=== PATIENT | male | born 1985 | race Caucasian/White ===

== ENCOUNTER 2024-01-06 09:17 | Outpatient (OUT) | payer OTHER, SELFPAY ==
[2024-01-06 09:31] LABS: Basophils Percent Auto 0.1 % (0.2-2.0); Eosinophils Absolute Auto 0.1 10^3/uL (0.0-0.7); Eosinophils Percent Auto 1.1 % (0.9-7.0); Hematocrit 42.6 % (42.0-54.0); Hemoglobin 14.4 g/dL (14.0-18.0); Immature Granulocytes Abs Auto 0.07 10^3/uL (0.00-0.03); Lymphocytes Absolute Auto 2.2 10^3/uL (1.2-3.8); Lymphocytes Percent Auto 31.5 % (20.5-60.0); Mean Corpuscular HGB Conc 33.8 g/dL (29.9-35.2); Mean Corpuscular Hemoglobin 27.7 pg (25.9-34.0); Mean Corpuscular Volume 82.1 fL (80.0-94.0); Mean Platelet Volume 10.6 fL (9.5-13.5); Monocytes Absolute Auto 0.7 10^3/uL (0.3-0.8); Monocytes Percent Auto 9.4 % (1.7-12.0); Neutrophils Percent Auto 56.9 % (43.0-75.0); Platelet Count 221 10^3/uL (150-450); Red Blood Count 5.19 10^6/uL (4.70-6.10); Red Cell Distribution Width 13.6 % (11.0-15.0)
[2024-01-06 09:51] LABS: Estimated Average Glucose 174 mg/dL; Glycohemoglobin A1C 7.7 % (4.5-6.2)
[2024-01-06 10:17] LABS: Alanine Aminotransferase 51 U/L (16-63); Alkaline Phosphatase 68 U/L (46-116); Anion Gap 10.3; Aspartate Amino Transferase 24 U/L (15-37); Bilirubin Total 0.7 mg/dL (0.2-1.0); Calcium 9.1 mg/dL (8.5-10.1); Carbon Dioxide 30.4 mmol/L (21.0-32.0); Chloride 101 mmol/L (98-107); Cholesterol 194 mg/dL (<=200); Estimated GFR (African America >60 (>=60); Estimated GFR (Non-African Ame >60 (>=60); Globulin 3.9 g/dL; Glucose 183 mg/dL (74-106); HDL Cholesterol 49 mg/dL (40-60); LDL Cholesterol Calculated 122.8 mg/dL; Potassium 3.7 mmol/L (3.5-5.1); Sodium 138 mmol/L (136-145); Thyroid Stimulating Hormone 1.709 uIU/mL (0.358-3.740); Total Protein 7.9 g/dL (6.4-8.2); Triglycerides 111 mg/dL (<=150); VLDL CHOLESTEROL 22.2 mg/dL
== END 2024-01-06 09:18 | disposition home or self-care (01) ==
LOC: LAB 09:17
PROVIDERS: PCP Family Medicine; Visit Provider Family Medicine
DX: Z00.00 Encounter for general adult medical examination without abnormal findings (principal); E11.65 Type 2 diabetes mellitus with hyperglycemia
CPT/HCPCS: 36415; 80053; 80061; 82043; 83036; 84443; 85025

== ENCOUNTER 2024-12-10 00:05 | Emergency (ER) | payer OTHER, SELFPAY ==
--- OUTSIDE RECORDS SUMMARY | 2024-12-10 00:10 | XMS_ITS | CCD ---
Author Organization [facility] Care Team Providers Care Mechanical Energy Engineer Name Role Phone Caryn Omer Unavailable REINIER, DR GEORGIE Rivas Admitting Unavailable HILLS, DR GEORGIE Rivas Attending Unavailable HILLS, DR GEORGIE Rivas Primary Care Unavailable HILLS, DR GEORGIE Rivas Consulting Unavailable HILLS, DR GEORGIE Rivas Admitting Unavailable HILLS, DR GEORGIE Rivas Attending Unavailable HILLS, DR GEORGIE Rivas Consulting Unavailable HILLS, DR GEORGIE Rivas Primary Care Unavailable HILLS, DR GEORGIE Rivas Admitting Unavailable HILLS, DR GEORGIE Rivas Attending Unavailable HILLS, DR GEORGIE Rivas Primary Care Unavailable REINIER, DR GEORGIE Rivas Consulting Unavailable GEORGIE HILLS Primary Care Physician [phone] NORBERT OWEN Attending UnavailNORBERT Whatley Attending Koffi sprague Allergies Allergy Classification Reported Allergen(s) Allergy Type Date of Onset Reaction(s) Facility (1 source) No Known Medication Allergies; Translations: [No Known Medication Allergies] Propensity to adverse reactions (disorder) [facility] Repository Medications Current Medications Medication Drug Class(es) Dates Sig (Normalized) Sig (Original) acetaminophen 325 mg / HYDROcodone bitartrate 5 mg oral tablet (4 sources) Opioid Agonist Start: 07-13-2022 [place] 325 mg-5 mg oral tablet 1 tab(s), Oral, q4hr, 12 tab(s), Refill(s) 0, take one tab q4hr prn after procedure., [id number], 189, cm, 07/13/22 10:13:00 EST, Height/Length Dosing, 132, kg, 07/13/22 10:13:00 EST, Weight Dosing Start Date: 07/13/22 Status: Ordered cephalexin 500 mg oral capsule (4 sources) Cephalosporin Antibacterial Start: 07-13-2022 take 1 capsule by mouth twice daily Keflex 500 mg Cap 500 mg = 1 cap(s), Oral, BID, start one day prior to the procedure., # 10 cap(s), Refills(s) 0, Pharmacy: [facility]/pharmacy #[id number], 189, cm, 07/13/22 10:13:00 EST, Height/Length Dosing, 132, kg, 07/13/22 10:13:00 EST, Weight Dosing Start Date: 07/13/22 Status: Ordered diazePAM 10 mg oral tablet (4 sources) Benzodiazepine Start: 07-13-2022 Valium 10 mg Tab 10 mg = 1 tab(s), Oral, Once, take one hour prior to procedure., # 1 tab(s), Refills(s) 0, Pharmacy: [facility]/pharmacy #[id number], 189, cm, 07/13/22 10:13:00 EST, Height/Length Dosing, 132, kg, 07/13/22 10:13:00 EST, Weight Dosing Start Date: 07/13/22 Status: Ordered metFORMIN hydrochloride 500 mg oral tablet (6 sources) Biguanide Start: 01-02-2024 take 1 tablet by mouth once daily Metformin Active 1 TAB PO Daily January 02, 2024 12:00am FreeTextSig: TAKE 1 TABLET BY MOUTH EVERY DAY; Note: Source Status: Start; Refills: 2; Qty: 90 Tablet; Provider: Reinier Jacques ( ) Start: 07-13-2022 metformin 500 mg oral tablet 500 mg = 1 tab(s), Refills(s) 0 Start Date: 07/13/22 Status: Ordered naproxen 500 mg oral tablet (1 source) Nonsteroidal Anti-inflammatory Drug Start: 09-05-2023 End: 10-03-2023 take 1 tablet by mouth twice daily Naprosyn 500 mg Tab 500 mg = 1 tab(s), Oral, BID, X 4 week(s), # 56 tab(s), Refills(s) 0, Pharmacy: [facility]/pharmacy #[id number], 189, cm, 09/05/23 15:31:00 EST, Height/Length Dosing, 133, kg, 09/05/23 15:31:00 EST, Weight Dosing Start Date: 09/05/23 Stop Date: 10/03/23 Status: Ordered sulfamethoxazole 400 mg / trimethoprim 80 mg oral tablet (1 source) Dihydrofolate Reductase Inhibitor Antibacterial, Sulfonamide Antimicrobial Start: 09-05-2023 End: 10-03-2023 Bactrim 400 mg-80 mg Tab 1 tab(s), Oral, BID for 4 week(s), 56 tab(s), Refill(s) 0, [id number], 189, cm, 09/05/23 15:31:00 EST, Height/Length Dosing, 133, kg, 09/05/23 15:31:00 EST, Weight Dosing Start Date: 09/05/23 Stop Date: 10/03/23 Status: Ordered Problems Active Problems Problem Classification Problem Date Documented Date Episodic/Chronic Contraceptive and procreative management (7 sources) Sterilization requested; Translations: [Encounter for sterilization] Onset: 07-13-2022 Episodic Diabetes mellitus with complications (7 sources) Hyperglycemia due to type 1 diabetes mellitus; Translations: [Hyperglycemia due to type 2 diabetes mellitus] 07-13-2022 Chronic Genitourinary symptoms and ill-defined conditions (9 sources) Dysuria; Translations: [Dysuria] Onset: 09-28-2021 Resolved: 09-28-2021 Episodic Inflammatory conditions of male genital organs (1 source) Prostatitis; Translations: [Inflammatory disease of prostate, unspecified] Onset: 09-05-2023 Episodic Other aftercare (3 sources) Surgical follow-up 09-14-2022 Episodic Other male genital disorders (1 source) Disorder of penis; Translations: [Other specified disorders of penis] Onset: 09-05-2023 Chronic Other male genital disorders (1 source) Irritation of penis 09-05-2023 Chronic Unclassified (2 sources) CONTACT W/AND (SUSP) EXPOS COVID-19; Translations: [CONTACT W/AND (SUSP) EXPOS COVID-19] Onset: 09-07-2021 Unclassified (5 sources) Asymptomatic microscopic hematuria 07-13-2022 Viral infection (1 source) COVID-19; Translations: [COVID-19] Onset: 09-07-2021 Past or Other Problems Problem Classification Problem Date Documented Da te Episodic/Chronic Diabetes mellitus without complication (1 source) Hyperglycemia, unspecified; Translations: [HYPERGLYCEMIA UNSPECIFIED] Onset: 10-20-2021 Episodic Other circulatory disease (1 source) Elevated blood-pressure reading, without diagnosis of hypertension; Translations: [ELEVATED BP READING W/O DX HTN] Onset: 10-20-2021 Episodic Unclassified (1 source) CONTACT W/AND (SUSP) EXPOS COVID-19; Translations: [CONTACT W/AND (SUSP) EXPOS COVID-19] Onset: 09-01-2021 Results Test Name Value Interpretation Reference Range Facility Urology Office/Clinic Noteon 11-22-2024 Urology Office/Clinic Note Urology Office/Clinic Note Chief Complaint Worsening LUTS HPI Staff Pt is here today for urinary urgency and frequency. Pt states that his symptoms started this past Monday. Previous dx: frequency and penile irritation Possible prostatitis treated at last OV with Bactrim and Naprosyn BID for 4 weeks. Pt states that his symptoms feel the same as the last time he was treated in our office. Denies dysuria, blood or pain of any kind. Denies any urinary leakage. Review of Systems PHQ Score Initial Depression Screen Score: 0 SCORE No fever, chills, malaise, myalgia. No dysuria, +pain w/ ejaculation, no pain w/ BM. No blood in urine, ejaculate, or stool. +change in urgency/frequency, +straining, +stream changes. No discharge, odor, or change in color of urine. +perineal pain/pressure, no scrotal pain, no suprapubic pain. Physical Exam Vitals & Measurements T: 37 ???C(Temporal Artery) HR: 82(Apical) RR: 18 BP: 146/99 HT: 189 cm HT: 74 in WT: 131.9 kg WT: 290.789 lb BMI: 36.93 General: nontoxic, NAD Assessment/Plan 1. Prostatitis (N41.9: Inflammatory disease of prostate, unspecified) Treated for same sx a little over a year ago. Responded well to 4 wks NSAID+Bactrim. Sx completely resolved. No new sexual partners. No high risk sexual behavior. Discussed that it sounds like he has chronic prostatitis. May be getting recurrent infection due to BPH/chronic obstruction. Discussed risks/benefits of starting alpha talon to hopefully decrease recurrence rates of acute prostatitis. Pt amenable. He was advised about the different possible causes of bacterial and non-bacterial prostatitis. He needs to complete the course of prescribed antibiotics. He understands that the symptoms improve if he decreases his exercise and activity level. Anti-inflammatory medicines can also be helpful, as well as frequent ejaculations. Hot baths are also helpful in easing the discomfort. -2 wks NSAIDs w food -4 wks Bactrim. -Start Flomax, maintenance. Risks/benefits/asa e effects of each medication discussed. F/u 1 yr. Follow-up With When Contact Information LYNNETTE OWEN PA-C, URL In 1 year [address] [place] [address] Additional Instructions: Patient Education Prostatitis Problem List/Past Medical History Ongoing Asymptomatic microscopic hematuria Encounter for postvasectomy sperm count Encounter for vasectomy Hyperglycemia due to type 1 diabetes mellitus Penile irritation Historical No qualifying data Procedure/Surgical History Vasectomy (09/01/2022). Medications Bactrim D.S. 800 mg-160 mg Tab, 1 tab(s), Oral, BID Flomax 0.4 mg Cap, 0.4 mg= 1 cap(s), Oral, Daily, 3 refills metformin 1000 mg Tab, 1000 mg= 1 tab(s) Naprosyn 500 mg Tab, 500 mg= 1 tab(s), Oral, BID Allergies No Known Medication Allergies Social History Alcohol - Low Risk, 07/13/2022 Substance Abuse Never., 11/21/2024 Tobacco Never (less than 100 in lifetime) Tobacco Use:. Never Smokeless Tobacco Use:. Household tobacco concerns: No., 11/21/2024 Family History Cancer: Father. Diabetes mellitus: Brother. Immunizations Vaccine Date Status SARS-CoV-2 (COVID-19) mRNA BNT-162b2 vax 11/21/2020 Recorded SARS-CoV-2 (COVID-19) mRNA BNT-162b2 vax 10/31/2020 Recorded influenza virus vaccine, inactivated 06/19/2019 Recorded influenza virus vaccine, H1N1, live 06/25/2009 Recorded measles/mumps/rube lla virus vaccine 03/30/2000 Recorded hepatitis B pediatric vaccine 03/30/2000 Recorded measles/mumps/rube lla virus vaccine 01/12/1993 Recorded Hib, unspecified formulation 01/12/1993 Recorded Normal [facility] Comment on above: Result Comment: Elec tronically Signed By: LYNNETTE OWEN PA-C\.br\Date and Time Signed: 11/22/24 12:33 EDT Ambulatory Visit Summaryon 0 11-21-2024 Ambulatory Visit Summary Ambulatory Visit Summary ESTEPHANIA GALE :1985 Visit Date:11/21/2024 Ambulatory Visit Instructions Your Diagnosis Prostatitis Your Care Team Attending Physician - LYNNETTE OWEN PA-C Primary Care Physician - GEORGIE HILLS MD This Is Your Medications List naproxen (Naprosyn 500 mg Tab) sulfamethoxazole-t rimethoprim (Bactrim D.S. 800 mg-160 mg Tab) tamsulosin (Flomax 0.4 mg Cap) Contact prescribing physician if questions or concerns metformin (metformin 1000 mg Tab) Procedures Performed Vasectomy (09/01/2022). Discharge Vitals Temperature (Temporal Artery) 37 ???C Heart Rate (Apical) 82 Respiratory Rate 18 Blood Pressure 146/99 Height 74 in Height 189 cm Weight 290.789 lb Weight 131.9 kg BMI 36.93 What to do next Scheduled Follow-Up Appointments Monday2025 8:20 AM EDT With: LYNNETTE OWEN PA-C Where: [facility] [address] [place] [address]- Medications What How Much When Instructions New naproxen (Naprosyn 500 mg Tab) 1 Tablets By Mouth 2 times a day Duration: 14 Days with food Pickup at [facility]/pharmacy #[id number] New sulfamethoxazole-t rimethoprim (Bactrim D.S. 800 mg-160 mg Tab) 1 Tablets By Mouth 2 times a day Duration: 28 Days Pickup at [facility]/pharmacy #[id number] New tamsulosin (Flomax 0.4 mg Cap) 1 Capsules By Mouth Every day Duration: 90 Days Refills: 3 Pickup at [facility]/pharmacy #[id number] Unchanged metformin (metformin 1000 mg Tab) 1 Tablets Contact prescribing physician if questions or concerns Pharmacy Information [facility]/pharmacy #[id number]: [address], [place] [id number] [phone] Allergies No Known Medication Allergies Problems Ongoing - Any problem that you are currently receiving treatment for. Asymptomatic microscopic hematuria Encounter for postvasectomy sperm count Encounter for vasectomy Hyperglycemia due to type 1 diabetes mellitus Penile irritation Patient Survey You may receive a survey via text or e-mail asking about your office visit. Please share your experience with us by completing your survey. We appreciate your feedback and thank you for choosing us for your care. Normal [facility] CBC AUTO DIFFon 05-14-2022 BASO # 0.0 103/ul Normal 0.0-0.1 [facility] Comment on above: Performed By: #### C BC #### [facility] [address] [address] [address] Solitario Ochoa Basophils/100 WBC (Bld) 0.3 % Normal 0.2-2.0 [facility] Comment on above: Performed By: #### C BC #### [facility] [address] [place] [address] Dr. Solitario Ochoa EO # 0.1 103/ul Normal 0.0-0.7 [facility] Comment on above: Performed By: #### C BC #### [facility] [address] [place] [address] Dr. Solitario Ochoa Eosinophils/100 WBC (Bld) 1.9 % Normal 0.9-7.0 [facility] Comment on above: Performed By: #### C BC #### [facility] [address] [place] [address] Dr. Solitario Ochoa Erythrocyte distribution width (RBC) [Ratio] 13.6 % Normal 11.0-15.0 [facility] Comment on above: Performed By: #### C BC #### [facility] [address] [place] [address] Dr. Solitario Ochoa Hematocrit (Bld) [Volume fraction] 43.5 % Normal 42.0-54.0 [facility] Comment on above: Performed By: #### C BC #### [facility] [address] [place] [address] Dr. Solitario Ochoa Hemoglobin (Bld) [Mass/Vol] 14.7 g/dL Normal 14.0-18.0 [facility] Comment on above: Performed By: #### C BC #### [facility] [address] [place] [address] Dr. Solitario Ochoa IG # 0.04 10e3/ul Critically high 0.00-0.03 [facility] Comment on above: Performed By: #### C BC #### [facility] [address] [place] [address] Dr. Solitario Ochoa IG % 0.6 % Critically high 0.0-0.5 [facility] Comment on above: Performed By: #### C BC #### [facility] [address] [place] [address] Dr. Solitario Ochoa LYMPH # 1.5 103/ul Normal 1.2-3.8 [facility] Comment on above: Performed By: #### C BC #### [facility] [address] [place] [address] Dr. Solitario Ochoa Lymphocytes/100 WBC (Bld) 21.8 % Normal 20.5-60.0 [facility] Comment on above: Performed By: #### C BC #### [facility] [address] [place] [address] Dr. Solitario Ochoa MANUAL DIFF REQ NO Normal [facility] Comment on above: Performed By: #### C BC #### [facility] [address] [place] [address] Dr. Solitario Ochoa MCH (RBC) [Entitic mass] 27.9 pg Normal 25.9-34.0 [facility] Comment on above: Performed By: #### C BC #### [facility] [address] [place] [address] Dr. Solitario Ochoa MCHC (RBC) [Mass/Vol] 33.8 g/dL Normal 29.9-35.2 [facility] Comment on above: Performed By: #### C BC #### [facility] [address] [place] [address] Dr. Solitario Ochoa MCV (RBC) [Entitic vol] 82.7 fL Normal 80.0-94.0 [facility] Comment on above: Performed By: #### C BC #### [facility] [address] [place] [address] Dr. Solitario Ochoa MONO # 0.9 103/ul Critically high 0.3-0.8 [facility] Comment on above: Performed By: #### C BC #### [facility] [address] [place] [address] Dr. Solitario Ochoa Monocytes/100 WBC (Bld) 13.3 % Critically high 1.7-12.0 [facility] Comment on above: Performed By: #### C BC #### [facility] [address] [place] [address] Dr. Solitario Ochoa NEUT # 4.3 103/ul Normal 1.4-6.5 [facility] Comment on above: Performed By: #### C BC #### [facility] [address] [place] [address] Dr. Solitario Ochoa Neutrophils/100 WBC (Bld) 62.1 % Normal 43.0-75.0 [facility] Comment on above: Performed By: #### C BC #### [facility] [address] [place] [address] Dr. Solitario Ochoa Platelet mean volume (Bld) [Entitic vol] 10.4 fL Normal 9.5-13.5 [facility] Comment on above: Performed By: #### C BC #### [facility] [address] [place] [address] Dr. Solitario Ochoa PLT 192 103/ul Normal 150-450 [facility] Comment on above: Performed By: #### C BC #### [facility] [address] [place] [address] Dr. Solitario Ochoa RBC 5.26 106/ul Normal 4.70-6.10 [facility] Comment on above: Performed By: #### C BC #### [facility] [address] [place] [address] Dr. Solitario Ochoa WBC 7.0 103/ul Normal 4.0-11.0 [facility] Comment on above: Performed By: #### C BC #### [facility] [address] [place] [address] Dr. Solitario Ochoa GLYCOHEMOGLOBIN A1Con 2021 ADA RECOMMENDATION SEE BELOW Normal [facility] Comment on above: Result Comment: ADA RECOMMENDED LIMIT 4.0 - 6.0 ADA THERAPEUTIC TARGET < 7.0 ACTION SUGGESTED > 7.0 Performed By: #### A 1C #### [facility] [address] [place] [address] Dr. Solitario Ochoa Glucose [Mass/Vol] 160 mg/dL Normal [facility] Comment on above: Performed By: #### A 1C #### [facility] [address] [address] [address] Solitario Ochoa HbA1c (Bld) [Mass fraction] 7.2 % Critically high 4.5-6.2 [facility] Comment on above: Performed By: #### A 1C #### [facility] [address] [place] [address] Dr. Solitario Ochoa LIPID PROFILEon 05-14-2022 CHOL-HDL RATIO NORM SEE BELOW Normal [facility] Comment on above: Result Comment: 3.3 - 4.4 LOW RISK 4.4 - 7.1 AVERAGE RISK 7.1 - 11.0 MODERATE RISK >11.0 HIGH RISK Performed By: #### C MP, LIPID #### [facility] [address] [place] [address] Dr. Solitario Ochoa Cholesterol [Mass/Vol] 208 mg/dL Critically high <=200 [facility] Comment on above: Performed By: #### C MP, LIPID #### [facility] [address] [place] [address] Dr. Solitario Ochoa Cholesterol in HDL [Mass/Vol] 52 mg/dL Normal 40-60 [facility] Comment on above: Performed By: #### C MP, LIPID #### [facility] [address] [address] [address] Solitario Ochoa Cholesterol in LDL [Mass/Vol] 131.8 mg/dL Normal [facility] Comment on above: Performed By: #### C MP, LIPID #### [facility] [address] [place] [address] Dr. Solitario Ochoa Cholesterol.total/Ch olesterol in HDL [Mass ratio] 4.0 {ratio} Normal [facility] Comment on above: Performed By: #### C MP, LIPID #### [facility] [address] [place] [address] Dr. Solitario Ochoa HDL NORMAL > or = 60 mg/dl - LOW CARDIOVASCULAR RISK <40 mg/dl - HIGH CARDIOVASCULAR RISK Normal [facility] Comment on above: Performed By: #### C MP, LIPID #### [facility] [address] [place] [address] Dr. Solitario Ochoa LDL CALC NORMAL SEE BELOW Normal [facility] Comment on above: Result Comment: <100 mg/dl OPTIMAL 100 - 129 mg/dl NEAR OR ABOVE OPTIMAL 130 - 159 mg/dl BORDERLINE HIGH 160 - 189 mg/dl HIGH >190 mg/dl VERY HIGH Performed By: #### C MP, LIPID #### [facility] [address] [place] [address] Dr. Solitario Ochoa Triglyceride [Mass/Vol] 121 mg/dL Normal <=150 [facility] Comment on above: Performed By: #### C MP, LIPID #### [facility] [address] [place] [address] Dr. Solitario Ochoa VLDL CALC 24.2 mg/dL Normal [facility] Comment on above: Performed By: #### C MP, LIPID #### [facility] [address] [place] [address] Dr. Solitario Ochoa PROF 14(COMP METB)on 022 Albumin [Mass/Vol] 4.0 g/dL Normal 3.4-5.0 [facility] Comment on above: Performed By: #### C MP, LIPID #### [facility] [address] [place] [address] Dr. Solitario Ochoa Albumin/Globulin [Mass ratio] 1.1 {ratio} Normal [facility] Comment on above: Performed By: #### C MP, LIPID #### [facility] [address] [place] [address] Dr. Solitario Ochoa ALP [Catalytic activity/Vol] 53 U/L Normal 46-116 [facility] Comment on above: Performed By: #### C MP, LIPID #### [facility] [address] [place] [address] Dr. Solitario Ochoa ALT [Catalytic activity/Vol] 49 U/L Normal 16-63 [facility] Comment on above: Performed By: #### C MP, LIPID #### [facility] [address] [address] [address] Solitario Ochoa Anion gap [Moles/Vol] 13.1 mmol/L Normal [facility] Comment on above: Performed By: #### C MP, LIPID #### [facility] [address] [address] [address] Solitario Ochoa AST [Catalytic activity/Vol] 28 U/L Normal 15-37 [facility] Comment on above: Performed By: #### C MP, LIPID #### [facility] [address] [place] [address] Dr. Solitario Ochoa Bilirubin [Mass/Vol] 0.9 mg/dL Normal 0.2-1.0 [facility] Comment on above: Performed By: #### C MP, LIPID #### [facility] [address] [place] [address] Dr. Solitario Ochoa Calcium [Mass/Vol] 8.7 mg/dL Normal 8.5-10.1 [facility] Comment on above: Performed By: #### C MP, LIPID #### [facility] [address] [place] [address] Dr. Solitario Ochoa Chloride [Moles/Vol] 102 mmol/L Normal 98-107 [facility] Comment on above: Performed By: #### C MP, LIPID #### [facility] [address] [place] [address] Dr. Solitario Ochoa CO2 [Moles/Vol] 27.1 mmol/L Normal 21.0-32.0 [facility] Comment on above: Performed By: #### C MP, LIPID #### [facility] [address] [place] [address] Dr. Solitario Ochoa Creatinine [Mass/Vol] 0.85 mg/dL Normal 0.70-1.30 [facility] Comment on above: Performed By: #### C MP, LIPID #### [facility] [address] [address] [address] Solitario Ochoa EGFR-AF EQUATORIAL GUINEAN >60 Normal >=60 [facility] Comment on above: Performed By: #### C MP, LIPID #### [facility] [address] [address] [address] Solitario Ochoa EGFR-NON AF EQUATORIAL GUINEAN >60 Normal >=60 [facility] Comment on above: Performed By: #### C MP, LIPID #### [facility] [address] [address] [address] Solitario Ochoa Globulin (S) [Mass/Vol] 3.7 g/dL Normal [facility] Comment on above: Performed By: #### C MP, LIPID #### [facility] [address] [place] [address] Dr. Solitario Ochoa Glucose [Mass/Vol] 177 mg/dL Critically high 74-[address] [facility] Comment on above: Performed By: #### C MP, LIPID #### [facility] [address] [place] [address] Dr. Solitario Ochoa Potassium [Moles/Vol] 4.2 mmol/L Normal 3.5-5.1 [facility] Comment on above: Performed By: #### C MP, LIPID #### [facility] [facility] [address] [place] [address] Dr. Solitario Ochoa Protein [Mass/Vol] 7.7 g/dL Normal 6.4-8.2 [facility] Comment on above: Performed By: #### C MP, LIPID #### [facility] [address] [place] [address] Dr. Solitario Ochoa Sodium [Moles/Vol] 138 mmol/L Normal 136-145 [facility] Comment on above: Performed By: #### C MP, LIPID #### [facility] [address] [place] [address] Dr. Solitario Ochoa Urea nitrogen [Mass/Vol] 11.0 mg/dL Normal 7.0-18.0 [facility] Comment on above: Performed By: #### C MP, LIPID #### [facility] [address] [place] [address] Dr. Solitario Ochoa Urea nitrogen/Creatinine [Mass ratio] 12.9 mg/mg Normal [facility] Comment on above: Performed By: #### C MP, LIPID #### [facility] [address] [place] [address] Dr. Solitario Ochoa CBC AUTO DIFFon 10-15-2021 BASO # 0.0 103/ul Normal 0.0-0.1 [facility] Comment on above: Performed By: #### C BC #### [facility] [address] [place] [address] Dr. Solitario Ochoa Basophils/100 WBC (Bld) 0.3 % Normal 0.2-2.0 [facility] Comment on above: Performed By: #### C BC #### [facility] [address] [place] [address] Dr. Solitario Ochoa EO # 0.1 103/ul Normal 0.0-0.7 [facility] Comment on above: Performed By: #### C BC #### [facility] [address] [place] [address] Dr. Solitario Ochoa Eosinophils/100 WBC (Bld) 1.3 % Normal 0.9-7.0 [facility] Comment on above: Performed By: #### C BC #### [facility] [address] [place] [address] Dr. Solitario Ochoa Erythrocyte distribution width (RBC) [Ratio] 13.9 % Normal 11.0-15.0 [facility] Comment on above: Performed By: #### C BC #### [facility] [address] [place] [address] Dr. Solitario Ochoa Hematocrit (Bld) [Volume fraction] 44.4 % Normal 42.0-54.0 [facility] Comment on above: Performed By: #### C BC #### [facility] [address] [place] [address] Dr. Solitario Ochoa Hemoglobin (Bld) [Mass/Vol] 15.2 g/dL Normal 14.0-18.0 [facility] Comment on above: Performed By: #### C BC #### [facility] [address] [place] [address] Dr. Solitario Ochoa IG # 0.04 10e3/ul Critically high 0.00-0.03 [facility] Comment on above: Performed By: #### C BC #### [facility] [address] [place] [address] Dr. Solitario Ochoa IG % 0.5 % Normal 0.0-0.5 [facility] Comment on above: Performed By: #### C BC #### [facility] [address] [place] [address] Dr. Solitario Ochoa LYMPH # 2.5 103/ul Normal 1.2-3.8 [facility] Comment on above: Performed By: #### C BC #### [facility] [address] [place] [address] Dr. Solitario Ochoa Lymphocytes/100 WBC (Bld) 31.1 % Normal 20.5-60.0 [facility] Comment on above: Performed By: #### C BC #### [facility] [address] [place] [address] Dr. Solitario Ochoa MANUAL DIFF REQ NO Normal [facility] Comment on above: Performed By: #### C BC #### [facility] [address] [place] [address] Dr. Solitario Ochoa MCH (RBC) [Entitic mass] 28.1 pg Normal 25.9-34.0 [facility] Comment on above: Performed By: #### C BC #### [facility] [address] [place] [address] Dr. Solitario Ochoa MCHC (RBC) [Mass/Vol] 34.2 g/dL Normal 29.9-35.2 [facility] Comment on above: Performed By: #### C BC #### [facility] [address] [place] [address] Dr. Solitario Ochoa MCV (RBC) [Entitic vol] 82.1 fL Normal 80.0-94.0 [facility] Comment on above: Performed By: #### C BC #### [facility] [address] [place] [address] Dr. Solitario Ochoa MONO # 0.8 103/ul Normal 0.3-0.8 [facility] Comment on above: Performed By: #### C BC #### [facility] [address] [place] [address] Dr. Solitario Ochoa Monocytes/100 WBC (Bld) 9.7 % Normal 1.7-12.0 [facility] Comment on above: Performed By: #### C BC #### [facility] [address] [place] [address] Dr. Solitario Ochoa NEUT # 4.5 103/ul Normal 1.4-6.5 [facility] Comment on above: Performed By: #### C BC #### [facility] [address] [place] [address] Dr. Solitario Ochoa Neutrophils/100 WBC (Bld) 57.1 % Normal 43.0-75.0 [facility] Comment on above: Performed By: #### C BC #### [facility] [address] [place] [address] Dr. Solitario Ochoa Platelet mean volume (Bld) [Entitic vol] 10.3 fL Normal 9.5-13.5 [facility] Comment on above: Performed By: #### C BC #### [facility] [address] [place] [address] Dr. Solitario Ochoa PLT 234 103/ul Normal 150-450 [facility] Comment on above: Performed By: #### C BC #### [facility] [address] [place] [address] Dr. Solitario Ochoa RBC 5.41 106/ul Normal 4.70-6.10 [facility] Comment on above: Performed By: #### C BC #### [facility] [address] [place] [address] Dr. Solitario Ochoa WBC 7.9 103/ul Normal 4.0-11.0 [facility] Comment on above: Performed By: #### C BC #### [facility] [address] [place] [address] Dr. Solitario Ochoa CULTURE URINEon 10-15-2021 CULTURE URINE Culture Observations: LIGHT GROWTH OF MIXED SKIN GLORIA. NO POTENTIAL PATHOGENS SEEN. Normal [facility] Comment on above: Performed By: #### U RCX #### [facility] [address] [address] [address] Solitario Ochoa GLYCOHEMOGLOBIN A1Con 2021 ADA RECOMMENDATION ADA THERAPEUTIC TARGET 6.0 - 7.0 ACTION SUGGESTED > 7.0 Normal [facility] Comment on above: Performed By: #### A 1C #### [facility] [address] [place] [address] Dr. Solitario Ochoa Glucose [Mass/Vol] 154 mg/dL Normal [facility] Comment on above: Performed By: #### A 1C #### [facility] [address] [place] [address] Dr. Solitario Ochoa HbA1c (Bld) [Mass fraction] 7.0 % Critically high <=6.0 [facility] Comment on above: Performed By: #### A 1C #### [facility] [address] [place] [address] Dr. Solitario Ochoa PROF CHEM 8 (BAS METB)on Anion gap [Moles/Vol] 11.6 mmol/L Normal [facility] Comment on above: Performed By: #### B MP #### [facility] [address] [place] [address] Dr. Solitario Ochoa Calcium [Mass/Vol] 9.4 mg/dL Normal 8.4-10.2 [facility] Comment on above: Performed By: #### B MP #### [facility] [address] [place] [address] Dr. Solitario Ochoa Chloride [Moles/Vol] 100 mmol/L Normal 98-107 [facility] Comment on above: Performed By: #### B MP #### [facility] [address] [place] [address] Dr. Solitario Ochoa CO2 [Moles/Vol] 29.4 mmol/L Normal 22.0-30.0 [facility] Comment on above: Performed By: #### B MP #### [facility] [address] [place] [address] Dr. Solitario Ochoa Creatinine [Mass/Vol] 0.72 mg/dL Normal 0.66-1.25 [facility] Comment on above: Performed By: #### B MP #### [facility] [address] [address] [address] Solitario Ochoa EGFR-AF EQUATORIAL GUINEAN >60 Normal >=60 [facility] Comment on above: Performed By: #### B MP #### [facility] [address] [address] [address] Solitario Ochoa EGFR-NON AF EQUATORIAL GUINEAN >60 Normal >=60 [facility] Comment on above: Performed By: #### B MP #### [facility] [address] [address] [address] Solitario Ochoa Glucose [Mass/Vol] 140 mg/dL Critically high 74-[address] [facility] Comment on above: Performed By: #### B MP #### [facility] [address] [address] [address] Solitario Ochoa Potassium [Moles/Vol] 4.0 mmol/L Normal 3.4-5.0 [facility] Comment on above: Performed By: #### B MP #### [facility] [address] [address] [address] Solitario Ochoa Sodium [Moles/Vol] 137 mmol/L Normal 137-145 [facility] Comment on above: Performed By: #### B MP #### [facility] [address] [address] [address] Solitario Ochoa Urea nitrogen [Mass/Vol] 15.0 mg/dL Normal 9.0-20.0 [facility] Comment on above: Performed By: #### B MP #### [facility] [address] [address] [address] Solitario Ochoa Urea nitrogen/Creatinine [Mass ratio] 20.8 mg/mg Normal [facility] Comment on above: Performed By: #### B MP #### [facility] [address] [address] [address] Solitario Ochoa UA RANDOM W/MICROSCOPICon BACTERIA NONE SEEN Normal NONE SEEN [facility] Comment on above: Performed By: #### U AMIC #### [facility] [address] [address] [address] Solitario Ochoa Bilirubin Ql (U) Negative Normal NEGATIVE [facility] Comment on above: Performed By: #### U AMIC #### [facility] [address] [address] [address] Solitairo Ochoa CAST NONE SEEN Normal NONE SEEN [facility] Comment on above: Performed By: #### U AMIC #### [facility] [address] [address] [address] Solitario Ochoa Clarity (U) CLEAR Normal CLEAR [facility] Comment on above: Performed By: #### U AMIC #### [facility] [address] [address] [address] Solitario Ochoa Color (U) LT. YELLOW Normal YELLOW [facility] Comment on above: Performed By: #### U AMIC #### [facility] [address] [address] [address] Solitario Ochoa Crystals LM Nom (Urine sed) NONE SEEN Normal NONE SEEN [facility] Comment on above: Performed By: #### U AMIC #### [facility] [address] [address] [address] Solitario Ochoa Epithelial cells LM Ql (Urine sed) RARE Normal NONE SEEN /RARE [facility] Comment on above: Performed By: #### U AMIC #### [facility] [address] [address] [address] Solitario Ochoa Glucose Ql (U) Negative Normal NEGATIVE [facility] Comment on above: Performed By: #### U AMIC #### [facility] [address] [address] [address] Solitario Ochoa Hemoglobin Ql (U) TRACE-LYSED Abnormal NEGATIVE [facility] Comment on above: Performed By: #### U AMIC #### [facility] [address] [address] [address] Solitario Ochoa Ketones Ql (U) Negative Normal NEGATIVE [facility] Comment on above: Performed By: #### U AMIC #### [facility] [address] [address] [address] Solitario Ochoa LEUKOCYTES Negative Normal NEGATIVE [facility] Comment on above: Performed By: #### U AMIC #### [facility] [address] [address] [address] Solitario Ochoa MUCOUS NONE SEEN Normal NONE SEEN [facility] Comment on above: Performed By: #### U AMIC #### [facility] [address] [address] [address] Solitario Ochoa Nitrite Ql (U) Negative Normal NEGATIVE [facility] Comment on above: Performed By: #### U AMIC #### [facility] [address] [address] [address] Solitario Ochoa pH (U) 6.0 [pH] Normal 5-9 [facility] Comment on above: Performed By: #### U AMIC #### [facility] [address] [place] [address] Dr. Solitario Ochoa RBC 2-5 Abnormal 0-2 [facility] Comment on above: Performed By: #### U AMIC #### [facility] [address] [place] [address] Dr. Solitario Ochoa SPEC GRAVITY 1.025 Normal 1.005-<=1.025 [facility] Comment on above: Performed By: #### U AMIC #### [facility] [address] [place] [address] Dr. Solitario Ochoa UA PROTEIN Negative Normal NEGATIVE/ TRACE [facility] Comment on above: Performed By: #### U AMIC #### [facility] [address] [place] [address] Dr. Solitario Ochoa Urobilinogen Qn (U) 0.2 {Nelly'U}/dL Normal 0.2 - 1. 0 [facility] Comment on above: Performed By: #### U AMIC #### [facility] [address] [place] [address] Dr. Solitario Ochoa WBC NONE SEEN Normal NONE SEEN [facility] Comment on above: Performed By: #### U AMIC #### [facility] [address] [address] [address] Solitario Ochoa Chlamydia/GC/Trich NAAon Chlamydia Trachomotis, CAMMIE Negative Normal Negative [facility] Comment on above: Order Comment: SOURC E OF SPECIMEN: YELLOW UR APTIMA Performed By: #### C UU #### [address] #### GCCHLAMTRI #### [facility] , Neisseria Gonorrhoeae, CAMMIE Negative Normal Negative [facility] Comment on above: Order Comment: SOURC E OF SPECIMEN: YELLOW UR APTIMA Performed By: #### C UU #### [address] #### GCCHLAMTRI #### [facility] , Trichomonas CAMMIE Negative Normal Negative [facility] Comment on above: Order Comment: SOURC E OF SPECIMEN: YELLOW UR APTIMA Result Comment: Perf ormed at: =G - [facility] [address] [id number] Land [employer] Specialist: Yisel Perez MD, Phone: [phone] PERFORMED BY: [place] [address] PATHOLOGIST ZIG ZAG STITCHER VIDHI BAER M.D. Performed By: #### C UU #### [address] #### GCCHLAMTRI #### [facility] , Urinalysis - AUTOMATEDon Appearance (U) clear [employer] Other Bilirubin Ql (U) Negative [employer] Other Color (U) dark yellow [employer] Other Glucose Ql (U) Negative [employer] Other Hemoglobin Ql (U) trace [employer] Other Ketones Ql (U) trace [employer] Other Leukocyte esterase Test strip Ql (U) Negative [employer] Other Nitrite Ql (U) Negative [employer] Other pH (U) 6.0 [pH] [employer] Other Protein Ql (U) trace [employer] Other Specific gravity (U) [Rel density] >1.030 [employer] Other Urobilinogen (U) [Mass/Vol] 0.2 mg/dL [employer] Other Urinalysis - AUTOMATED [employer] Other Urine Cultureon 09-28-2021 Bacteria identified Cx Nom (U) 20,000 colonies/ml mixed bacterial skin contaminants 2 Days PERFORMED BY: [place] [address] PATHOLOGIST ZIG ZAG STITCHER VIDHI BAER M.D. Normal [facility] Comment on above: Performed By: #### C UU #### [facility] [address] [place] [address] #### GCCHLAMTRI #### [facility] , Covid-19 PCR (CVDTB)on 08-05 SARS-CoV-2 (COVID-19) RNA CAMMIE+probe Ql (Unsp spec) Detected Critically abnormal NOT DETECTED [facility] Comment on above: Result Comment: This test is not yet approved or cleared by the [place] FDA. When there are no FDA-approved or cleared tests available, and other criteria are met, FDA can make tests available under an emergency access mechanism called an Emergency Use Authorization (EUA). The EUA for this test is supported by the [place] of Health and Human Service's (HHS's) declaration that circumstances exist to justify the emergency use of in vitro diagnostics for the detection and/or diagnosis of the virus that causes COVID-19. This EUA will remain in effect (meaning this test can be used) for the duration of the COVID-19 declaration justifying emergency of IVDs, unless it is terminated or revoked by FDA (after which the test may no longer be used). Performed By: #### C [facility] #### [facility] [address] [place] [address] Dr. Solitario Ochoa Vital Signs Date Time Vital Sign Value Performing Clinician Facility 01-04-2024 15:55-0400 Body height 187.96 cm [facility] 01-04-2024 15:55-0400 Body mass index (BMI) [Ratio] 38.2 kg/m2 [facility] 01-04-2024 15:55-0400 Body weight 134.88 kg [facility] 01-04-2024 15:55-0400 Diastolic blood pressure 96 mm[Hg] [facility] 01-04-2024 15:55-0400 Heart rate 89 /min [facility] 01-04-2024 15:55-0400 Systolic blood pressure 154 mm[Hg] [facility] 09-05-2023 15:30-0500 Blood Pressure Location LYNNETTE OWEN [facility] 09-05-2023 15:30-0500 Diastolic blood pressure 89 mm[Hg] LYNNETTE BLUMRY [facility] 09-05-2023 15:30-0500 Heart rate 79 /min LYNNETTE BRAYDEN [facility] 09-05-2023 15:30-0500 Respiratory rate 16 /min LYNNETTE BRAYDEN [facility] 09-05-2023 15:30-0500 Systolic blood pressure 138 mm[Hg] LYNNETTE BRAYDEN [facility] 07-13-2022 09:51-0500 Blood Pressure Location Nicholas MENJIVAR [facility] 07-13-2022 09:51-0500 Diastolic blood pressure 91 mm[Hg] Nicholas [email or web address] [facility] 07-13-2022 09:51-0500 Heart rate 81 /min Nicholas Disrupt6 [facility] 07-13-2022 09:51-0500 Respiratory rate 16 /min Nicholas [email or web address] [facility] 07-13-2022 09:51-0500 Systolic blood pressure 152 mm[Hg] Nicholas Disrupt6 [facility] 09-28-2021 17:20-0500 Body height 187.96 cm Caryn Ginty Other [facility] Other 09-28-2021 17:20-0500 Body mass index (BMI) [Ratio] 38.9 kg/m2 Caryn Ginty Other [facility] Other 09-28-2021 17:20-0500 Body temperature 97.5 [degF] Caryn Ginty Other [facility] Other 09-28-2021 17:20-0500 Body weight 137.44 kg Caryn Ginty Other [facility] Other 09-28-2021 17:20-0500 Diastolic blood pressure 95 mm[Hg] Caryn Ginty Other [facility] Other 09-28-2021 17:20-0500 Respiratory rate 18 /min Caryn Ginty Other [facility] Other 09-28-2021 17:20-0500 SaO2% (BldA) [Mass fraction] 99 % Caryn Cherylloyd Other [facility] Other 09-28-2021 17:20-0500 Systolic blood pressure 156 mm[Hg] Caryn Cherylloyd Other [employer] Other Encounters Encounter Date Encounter Type Care Provider Facility Start: 11-21-2025 ambulatory PA-C LYNNETTE OWEN Facility:[facility] Start: 11-21-2024 End: 11-21-2024 ambulatory PA-C LYNNETTE OWEN Facility:[facility] Start: 01-04-2024 Patient encounter status [facility] Start: 01-04-2024 End: 01-04-2024 ambulatory [facility] Work Phone: Start: 01-04-2024 End: 01-04-2024 Encounter for general adult medical examination without abnormal findings [facility] Start: 01-04-2024 End: 01-04-2024 Patient encounter procedure Pending Sale To [facility] Work Phone: Start: 09-05-2023 End: 09-05-2023 Patient encounter procedure LYNNETTE OWEN [facility] Start: 11-25-2022 End: 11-25-2022 Lab Drop off Nicholas MENJIVAR [facility] Start: 09-14-2022 End: 09-14-2022 Patient encounter procedure [facility]JIVAR [facility] Start: 09-01-2022 End: 09-01-2022 Patient encounter procedure Nicholas MENJIVAR [facility] Start: 07-13-2022 End: 07-13-2022 Patient encounter procedure Nicholas MENJIVAR [facility] Start: 05-20-2022 Encounter for genera l adult medical examination without abnormal findings DR GEORGIE HILLS [facility] Start: 05-14-2022 End: 05-15-[address] GEORGIE HILLS Facility:[facility] Start: 05-14-2022 End: 05-15-2022 Encounter for general adult medical examination without abnormal findings DR GEORGIE HILLS Facility:[facility] Start: 10-15-2021 End: 10-16-[address] GEORGIE HILLS Facility:[facility] Start: 10-01-2021 End: 10-01-2021 ambulatory Caryn Ginty Other [employer] Other Start: 10-01-2021 Telephone encounter Caryn Ginty [facility] [address] Start: 09-28-2021 End: 09-28-2021 ambulatory Caryn Ginty Other [employer] Other Start: 09-28-2021 Office outpatient vi sit 15 minutes Caryn Ginty [facility] Start: 09-01-2021 End: 09-01-[address] GEORGIE HILLS Facility:[facility] Procedures Date Procedure Procedure Detail Performing Clinician Start: 09-01-2022 Vasectomy Nicholas ARAIZA Plan of Treatment Date Care Activity Detail Author Comprehensive metabo lic 2000 panel - Serum or Plasma [facility] enter Microalbumin [Mass/volume] in Urine [facility] Immunizations Immunization Date Immunization Notes Care Provider Fa cility 11-21-2020 SARS-CoV-2 (COVID-19 ) mRNA BNT-162b2 vax Nicholas MENJIVAR [facility] 10-31-2020 SARS-CoV-2 (COVID-19 ) mRNA BNT-850b2 vax Nicholas MENJIVAR [facility] 06-19-2019 influenza virus vaccine, unspecified formulation Nicholas MENJIVAR [facility] 06-25-2009 influenza virus vaccine, H1N1, live Nicholas MENJIVAR [facility] 03-30-2000 hepatitis B vaccine, pediatric or pediatric/adolescent dosage Nicholas MENJIVAR [facility] 03-30-2000 measles, mumps and rubella virus vaccine Nicholas MENJIVAR [facility] 01-12-1993 Hib, unspecified formulation Nicholas MENJIVAR [facility] 01-12-1993 measles, mumps and rubella virus vaccine Nicholas MENJIVAR [facility] Payers Date Payer Category Payer Unknown [id number] 1987 Unknown [id number] 1987 Unknown [id number] 1987 Unknown [id number] 1987 Unknown [id number] 1959 Private Health Insurance [id number] Self-pay Self Pay [id number] Unknown Lexi GARCIA/BS [id number] Social History Date Type Detail Facility Sex Assigned At [facility] Start: 03-06-2016 End: 07-13-2022 Tobacco smoking status Never smoked tobacco (finding) [facility] of [facility] Tobacco smoking status Never [facility] Start: 1985 Sex Assigned At Male F [facility] Functional Status Date Assessment Result Facility 09-05-2023 Functional Status N/A [facility] 09-14-2022 Functional Status N/A [facility] 08-30-2022 Functional Status N/A [facility] 07-13-2022 Functional Status N/A [facility] Clinical Notes 09-28-2021 to 11-22-2024 LaboratoryLaboratory Note Date & Type Note Facility 11-22-2024 Note Patient Education Infectious Disease Prostatitis Prostatitis is swelling or inflammation of the prostate gland, also called the prostate. This gland is about 1.5 inches wide and 1 inch high, and it is involved in making semen. The prostate is located below a man's bladder, in front of the rectum. There are four types of prostatitis: ??? Chronic prostatitis (CP), also called chronic pelvic pain syndrome (CPPS). This is the most common type of prostatitis. It is associated with increased muscle tone in the area between the hip bones (pelvic area), around the prostate. This type is also known as a pelvic floor disorder. ??? Chronic bacterial prostatitis. This type usually results from an acute bacterial infection in the prostate gland that keeps coming back or has not been treated properly. The symptoms are less severe than those caused by acute bacterial prostatitis, which lasts a shorter time. ??? Asymptomatic inflammatory prostatitis. This type does not have symptoms and does not need treatment. This is diagnosed when tests are done for other disorders of the urinary tract or reproductive tract. ??? Acute bacterial prostatitis. This type starts quickly and results from an acute bacterial infection in the prostate gland. It is usually associated with a bladder infection, high fever, and chills. This is the least common type of prostatitis. What are the causes? Bacterial prostatitis is caused by an infection from bacteria. Chronic nonbacterial prostatitis may be caused by: ??? Factors related to the nervous system. This system includes thebrain, spinal cord, and nerves. ??? An autoimmune response. This happens when the body's disease-fighting system attacks healthy tissue in the body by mistake. ??? Psychological factors. These have to do with how the mind works. The causes of the other types of prostatitis are usually not known. What are the signs or symptoms? Symptoms of this condition depend on the type of prostatitis you have. Acute bacterial prostatitis Symptoms may include: ??? Pain or burning during urination. ??? Frequent and sudden urges to urinate. ??? Trouble starting to urinate. ??? Fever. ??? Chills. ??? Pain in your muscles or joints, lower back, or lower abdomen. Other types of prostatitis Symptoms may include: ??? Sudden urges to urinate, or urinating often. ??? Trouble starting to urinate. ??? Weak urine stream. ??? Dribbling after urination. ??? Discharge coming from the penis. ??? Pain in the testicles, the penis, or the tip of the penis. ??? Pain in the area in front of the rectum and below the scrotum (perineum). ??? Pain when ejaculating. How is this diagnosed? This condition may be diagnosed based on: ??? A physical and medical exam. ??? A digital rectal exam. For this, the health care provider may use a finger to feel the prostate. ??? A urine test to check for bacteria. ??? A semen sample or blood tests. ??? Ultrasound. ??? Urodynamic tests to check how your body handles urine. ??? Cystoscopy to look inside your bladder or inside the part of your body that drains urine from the bladder (urethra). How is this treated? Treatment for this condition depends on the type of prostatitis. Treatment may involve: ??? Medicines to relieve pain or inflammation, or to help relax your muscles. ??? Physical therapy. ??? Heat therapy. ??? Biofeedback. These techniques help you control certain body functions. ??? Relaxation exercises. ??? Antibiotic medicine, if your condition is caused by bacteria. ??? Sitz baths. These warm water baths help to relax your pelvic floor muscles, which helps to relieve pressure on the prostate. Follow these instructions at home: Medicines ??? Take ktbm-kax-yxmmuyg and prescription medicines only as told by your health care provider. ??? If you were prescribed an antibiotic medicine, take it as told by your health care provider. Do not stop using the antibiotic even if you start to feel better. Managing pain and swelling ??? Take sitz baths as directed by your health care provider. For a sitz bath, sit in warm water that is deep enough to cover your hips and buttocks. ??? If directed, apply heat to the affected area as often as told by your health care provider. Use the heat source that your health care provider recommends, such as a moist heat pack or a heating pad. ? Place a towel between your skin and the heat source. ? Leave the heat on for 20?30 minutes. ? Remove the heat if your skin turns bright red. This is especially important if you are unable to feel pain, heat, or cold. You may have a greater risk of getting burned. General instructions ??? Do exercises as told by your health care provider, if you were prescribed physical therapy, biofeedback, or relaxation exercises. ??? Keep all follow-up visits as told by your health care provider. This is important. (more content not included)... [facility] 09-05-2023 Hospital Discharg e instructions Patient Education 09/05/2023 16:10:34 Prostatitis Prostatitis Prostatitis is swelling or inflammation of the prostate gland, also called the prostate. This gland is about 1.5 inches wide and 1 inch high, and it is involved in making semen. The prostate is located below a man's bladder, in front of the rectum. There are four types of prostatitis: Chronic prostatitis (CP), also called chronic pelvic pain syndrome (CPPS). This is the most common type of prostatitis. It is associated with increased muscle tone in the area between the hip bones (pelvic area), around the prostate. This type is also known as a pelvic floor disorder. Chronic bacterial prostatitis. This type usually results from an acute bacterial infection in the prostate gland that keeps coming back or has not been treated properly. The symptoms are less severe than those caused by acute bacterial prostatitis, which lasts a shorter time. Asymptomatic inflammatory prostatitis. This type does not have symptoms and does not need treatment. This is diagnosed when tests are done for other disorders of the urinary tract or reproductive tract. Acute bacterial prostatitis. This type starts quickly and results from an acute bacterial infection in the prostate gland. It is usually associated with a bladder infection, high fever, and chills. This is the least common type of prostatitis. What are the causes? Bacterial prostatitis is caused by an infection from bacteria. Chronic nonbacterial prostatitis may be caused by: Factors related to the nervous system. This system includes thebrain, spinal cord, and nerves. An autoimmune response. This happens when the body's disease-fighting system attacks healthy tissue in the body by mistake. Psychological factors. These have to do with how the mind works. The causes of the other types of prostatitis are usually not known. What are the signs or symptoms? Symptoms of this condition depend on the type of prostatitis you have. Acute bacterial prostatitis Symptoms may include: Pain or burning during urination. Frequent and sudden urges to urinate. Trouble starting to urinate. Fever. Chills. Pain in your muscles or joints, lower back, or lower abdomen. Other types of prostatitis Symptoms may include: Sudden urges to urinate, or urinating often. Trouble starting to urinate. Weak urine stream. Dribbling after urination. Discharge coming from the penis. Pain in the testicles, the penis, or the tip of the penis. Pain in the area in front of the rectum and below the scrotum (perineum). Pain when ejaculating. How is this diagnosed? This condition may be diagnosed based on: A physical and medical exam. A digital rectal exam. For this, the health care provider may use a finger to feel the prostate. A urine test to check for bacteria. A semen sample or blood tests. Ultrasound. Urodynamic tests to check how your body handles urine. Cystoscopy to look inside your bladder or inside the part of your body that drains urine from the bladder (urethra). How is this treated? Treatment for this condition depends on the type of prostatitis. Treatment may involve: Medicines to relieve pain or inflammation, or to help relax your muscles. Physical therapy. Heat therapy. Biofeedback. These techniques help you control certain body functions. Relaxation exercises. Antibiotic medicine, if your condition is caused by bacteria. Sitz baths. These warm water baths help to relax your pelvic floor muscles, which helps to relieve pressure on the prostate. Follow these instructions at home: Medicines Take sznt-nos-mqogbnj and prescription medicines only as told by your health care provider. If you were prescribed an antibiotic medicine, take it as told by your health care provider. Do not stop using the antibiotic even if you start to feel better. Managing pain and swelling Take sitz baths as directed by your health care provider. For a sitz bath, sit in warm water that is deep enough to cover your hips and buttocks. If directed, apply heat to the affected area as often as told by your health care provider. Use the heat source that your health care provider recommends, such as a moist heat pack or a heating pad. ?Place a towel between your skin and the heat source. ?Leave the heat on for 20 30 minutes. ?Remove the heat if your skin turns bright red. This is especially important if you are unable to feel pain, heat, or cold. You may have a greater risk of getting burned. General instructions Do exercises as told by your health care provider, if you were prescribed physical therapy, biofeedback, or relaxation exercises. Keep all follow-up visits as told by your health care provider. This is important. Where to find more information National [place] of Diabetes and Digestive and Kidney Diseases: https://www.niddk.nih.gov Contact a health care provider if: Your symptoms get worse. You have a fever. Get help right away if: You have chills. You feel light-headed or feel like you may faint. You cannot urinate. You have blood or blood clots in your urine. Summary Prostatitis is swelling or inflammation of the prostate gland. Treatment for this condition depends on the type of prostatitis. Take mekq-kyv-dzaiwbv and prescription medicines only as told by your health care provider. Get help right away of you have chills, feel light-headed, feel like you may faint, cannot urinate, or have blood or blood clots in your urine. This information is not intended to replace advice given to you by your health care provider. Make sure you discuss any questions you have with your health care provider. Document Revised: 09/25/2020 Document Reviewed: 09/25/2020 Elsevier Patient Education 2022 [employer]. Follow Up Care 09/01/2023 14:24:29 With:LYNNETTE OWEN PA-C, URL Address: [address] [place] [id number] When: only if needed [facility] 11-25-2022 Evaluation + Plan note Diagnostic Tests PendingSemen Analysis Post Vasectomy 11/25/22Sperm Morphology 11/25/22 Future Scheduled TestsSemen Analysis Post Vasectomy 09/14/22 [facility] 09-14-2022 Evaluation + Plan note Future Scheduled TestsSemen Analysis Post Vasectomy 09/14/22 [facility] 09-14-2022 Hospital Discharg e instructions Patient Education 09/14/2022 08:01:01 Contraception Choices Contraception Choices Contraception, also called control, refers to methods or devices that prevent . Hormonal methods Contraceptive implant A contraceptive implant is a thin, plastic tube that contains a hormone. It is inserted into the upper part of the arm. It can remain in place for up to 3 years. Progestin-only injections Progestin-only injections are injections of progestin, a synthetic form of the hormone progesterone. They are given every 3 months by a health care provider. control pills control pills are pills that contain hormones that prevent . They must be taken once a day, preferably at the same time each day. control patch The control patch contains hormones that prevent . It is placed on the skin and must be changed once a week for three weeks and removed on the fourth week. A prescription is needed to use this method of contraception. Vaginal ring A vaginal ring contains hormones that prevent . It is placed in the vagina for three weeks and removed on the fourth week. After that, the process is repeated with a new ring. A prescription is needed to use this method of contraception. Emergency contraceptive Emergency contraceptives prevent after unprotected sex. They come in pill form and can be taken up to 5 days after sex. They work best the sooner they are taken after having sex. Most emergency contraceptives are available without a prescription. This method should not be used as your only form of control. Barrier methods Male condom A male condom is a thin sheath that is worn over the penis during sex. Condoms keep sperm from going inside a woman's body. They can be used with a spermicide to increase their effectiveness. They should be disposed after a single use. Female condom A female condom is a soft, loose-fitting sheath that is put into the vagina before sex. The condom keeps sperm from going inside a woman's body. They should be disposed after a single use. Diaphragm A diaphragm is a soft, dome-shaped barrier. It is inserted into the vagina before sex, along with a spermicide. The diaphragm blocks sperm from entering the uterus, and the spermicide kills sperm. A diaphragm should be left in the vagina for 6 8 hours after sex and removed within 24 hours. A diaphragm is prescribed and fitted by a health care provider. A diaphragm should be replaced every 1 2 years, after giving , after gaining more than 15 lb (6.8 kg), and after pelvic surgery. Cervical cap A cervical cap is a round, soft latex or plastic cup that fits over the cervix. It is inserted into the vagina before sex, along with spermicide. It blocks sperm from entering the uterus. The cap should be left in place for 6 8 hours after sex and removed within 48 hours. A cervical cap must be prescribed and fitted by a health care provider. It should be replaced every 2 years. Sponge A sponge is a soft, circular piece of polyurethane foam with spermicide on it. The sponge helps block sperm from entering the uterus, and the spermicide kills sperm. To use it, you make it wet and then insert it into the vagina. It should be inserted before sex, left in for at least 6 hours after sex, and removed and thrown away within 30 hours. Spermicides Spermicides are chemicals that kill or block sperm from entering the cervix and uterus. They can come as a cream, jelly, suppository, foam, or tablet. A spermicide should be inserted into the vagina with an applicator at least 10 15 minutes before sex to allow time for it to work. The process must be repeated every time you have sex. Spermicides do not require a prescription. Intrauterine contraception Intrauterine device (IUD) An IUD is a T-shaped device that is put in a woman's uterus. There are two types: Hormone IUD.This type contains progestin, a synthetic form of the hormone progesterone. This type can stay in place for 3 5 years. Copper IUD.This type is wrapped in copper wire. It can stay in place for 10 years. Permanent methods of contraception Female tubal ligation In this method, a woman's fallopian tubes are sealed, tied, or blocked during surgery to prevent eggs from traveling to the uterus. Hysteroscopic sterilization In this method, a small, flexible insert is placed into each fallopian tube. The inserts cause scar tissue to form in the fallopian tubes and block them, so sperm cannot reach an egg. The procedure takes about 3 months to be effective. Another form of control must be used during those 3 months. Male sterilization This is a procedure to tie off the tubes that carry sperm (vasectomy). After the procedure, the man can still ejaculate fluid (semen). Natural planning methods Natural family planning In this method, a couple does not have sex on days when the woman could become . Calendar method This means keeping track of the length of each menstrual cycle, identifying the days when can happen, and not having sex on those days. Ovulation method In this method, a couple avoids sex during ovulation. Symptothermal method This method involves not having sex during ovulation. The woman typically checks for ovulation by watching changes in her temperature and in the consistency of cervical mucus. Post-ovulation method In this method, a couple waits to have sex until after ovulation. Summary Contraception, also called control, means methods or devices that prevent . Hormonal methods of contraception include implants, injections, pills, patches, vaginal rings, and emergency contraceptives. Barrier methods of contraception can include male condoms, female condoms, diaphragms, cervical caps, sponges, and spermicides. There are two types of IUDs (intrauterine devices). An IUD can be put in a woman's uterus to prevent for 3 5 years. Permanent sterilization can be done through a procedure for males, females, or both. Natural family planning methods involve not having sex on days when the woman could become . This information is not intended to replace advice given to you by your health care provider. Make sure you discuss any questions you have with your health care provider. Document Released: 08/21/2006 Document Revised: 08/23/2018 Document Reviewed: 09/23/2017 [employer] Patient Education 2020 [employer]. Follow Up Care 07/13/2022 10:35:16 With:TIARA AGUIRRE, Nicholas Malagon, URL Address: [address] [place] [address] [place], [place] [id number]- When: only if needed Comments:renetta [facility] 09-01-2022 Hospital Discharg e instructions Patient Education 09/01/2022 07:38:45 [facility] - Vasectomy Discharge Instructions (Custom) Vasectomy The following instructions must be followed closely: -If you need pain pills, start before pain becomes intense. Antibiotics and pain pills are frequently less upsetting to your stomach if you take them with food such as crackers or bread. -If you have excessive or persistent pain, swelling, bleeding, nausea, vomiting, or any problems, you should first call your surgeon for advice. If you are unable to contact your surgeon, seek help from a hospital emergency room. If you were given drugs to make you drowsy or pain medication follow these instructions: -You should spend the remainder of the day and evening resting. -You should not attempt to walk, including going to the bathroom without assistance. You may be lightheaded from the medication you received. -Eat light today to avoid nausea. You should be able to return to your normal diet 24 to 36 hours after your procedure. -For the next 24 hours, do not consume alcohol, attempt to drive, use power tools, sign important documents or make important decisions. After that only do so if you feel perfectly normal and alert. -Follow carefully any verbal or written instructions your surgeon may give you. Surgeons written instructions with a copy given to patient: -No sex for 1 to 2 weeks. - No unprotected sex, until results of your sperm count have been verified as negative by your doctor, and these results given to you. -You may shower in 2 days. -Take the pain medication and antibiotics as directed. -Apply frozen peas or corn to your scrotum, 15 minutes on and 15 minutes off. -Call the office to schedule follow up appointment 1 to 2 weeks after your procedure. Follow Up Care 07/13/2022 10:57:27 With:Nicholas MENJIVAR Address: [address] [place], [place] [id number] [facility] (1) When:2 to 4 weeks Comments:Call for followup appointment [facility] 07-13-2022 Hospital Discharg e instructions Patient Education 07/13/2022 10:25:58 Vasectomy, Care After Vasectomy, Care After This sheet gives you information about how to care for yourself after your procedure. Your health care provider may also give you more specific instructions. If you have problems or questions, contact your health care provider. What can I expect after the procedure? After your procedure, it is common to have: Mild pain, swelling, redness, or discomfort in your scrotum. Some blood coming from your incisions or puncture sites for one or two days. Blood in your semen. Follow these instructions at home: Medicines Take gnoo-fux-tloyfkw and prescription medicines only as told by your health care provider. Avoid taking NSAIDs such as aspirin and ibuprofen, because these medicines can make bleeding worse. Activity For the first 2 days after surgery, avoid physical activity and exercise that require a lot of energy. Ask your health care provider what activities are safe for you. Do not participate in sports or perform heavy physical labor until your pain has improved, or until your health care provider says it is okay. Do not ejaculate for at least 1 week after the procedure, or as long as directed. You may resume sexual activity 7 10 days after your procedure, or when your health care provider approves. Use a different method of control (contraception) until you have had test results that confirm that there is no sperm in your semen. Scrotal support Use scrotal support, such as a jock strap or underwear with a supportive pouch, as needed for one week after your procedure. If you feel discomfort in your scrotum, you may remove the scrotal support to see if the discomfort is relieved. Sometimes scrotal support can press on the scrotum and cause or worsen discomfort. If your skin gets irritated, you may add some germ-free (sterile), fluffed bandages or a clean washcloth to the scrotal support. General instructions Put ice on the injured area: ?Put ice in a plastic bag. ?Place a towel between your skin and the bag. ?Leave the ice on for 20 minutes, 2 3 times a day. Check your incisions or puncture sites every day for signs of infection. Check for: ?Redness, swelling, or pain. ?Fluid or blood. ?Warmth. ?Pus or a bad smell. Leave stitches (sutures) in place. The sutures will dissolve on their own and do not need to be removed. Keep all follow-up visits as told by your health care provider. This is important because you will need a test to confirm that there is no sperm in your semen. Multiple ejaculations are needed to clear out sperm that were beyond the vasectomy site. You will need one test result showing that there is no sperm in your semen before you can resume unprotected sex. This may take 2 4 months after your procedure. Do not drive for 24 hours if you were given a sedative to help you relax. Contact a health care provider if: You have redness, swelling, or more pain around your incision or puncture site, or in your scrotum area in general. You have bleeding from your incision or puncture site. You have pus or a bad smell coming from your incision or puncture site. You have a fever. Your incision or puncture site opens up. Get help right away if: You develop a rash. You have difficulty breathing. Summary After your procedure it is common to have mild pain, swelling, redness, or discomfort in your scrotum. Avoid physical activity and exercise that requires a lot of energy for the first 2 days after surgery. Put ice on the injured area. Leave the ice on for 20 minutes, 2 3 times a day. Do not drive for 24 hours if you were given a sedative to help you relax. This information is not intended to replace advice given to you by your health care provider. Make sure you discuss any questions you have with your health care provider. Document Released: 03/10/2006 Document Revised: 08/03/2018 Document Reviewed: 11/17/2017 [employer] Patient Education 2020 [employer]. Follow Up Care 03/29/2022 13:05:50 With:TIARA AGUIRRE, Nicholas Malagon, URL Address: [address] [place] [id number] When: Unknown [facility] 09-28-2021 Evaluation note Encounter Date Diagnosis Assessment Notes Sep, Dysuria (ICD-10 - R30.0) Discussed dipstick findings with patient. No signs of UTI present. Patient has had urine cultures completed in the past with no positive results on culture. Patient wishes to procede with urine culture. Advised that we will call him with results in 2-5 days. Discussed that urinary issues may be related to STI. Patient wishes to have STI panel completed today as well. Advised that if urine culture and STI panel come back clean, patient needs to follow up with his PCP to have glucose checked and/or urology referral. Patient verbalizes understanding and is agreeable with treatment plan Opposing Views Other Evaluation + Plan note Future Appointments Appointment Date:08/18/2022 08:15:00 AM Scheduled Provider: Location:[facility] Appointment Type:Urology CALL PAT FT Appointment Date:09/01/2022 08:00:00 AM Scheduled Provider: Location:[facility] Appointment Type:Urology FT Appointment Date:09/14/2022 07:45:00 AM Scheduled Provider:Nicholas MENJIVAR MD Location:[facility] Appointment Type:URO Office Visit [facility] Evaluation + Plan note Future Appointments Appointment Date:09/14/2022 08:00:00 AM Scheduled Provider:Nicholas MENJIVAR MD Location:[facility]ointment [facility] note[facility] InformationNort [employer] Other Evaluation note* Diagnosis Onset Date Resolution Status Type 2 diabetes mellitus with hyperglycemia acute Wellness examination [facility] Work Phone: History general Narrative - Reported* Type Description Date Medical History pre hypertension Surgical History oral surgery Hospitalization History see surgical hx Opposing Views Other Hospital course Narrative No data available for this section [facility] Hospital Discharge instructions No data available for this section [facility] No data available for this section [facility] [place] Summary Purpose Family History No Family History Records Found Relationship Condition Age at Onset Recorded Date/T selina father Malignant neoplasm Unknown Diabetes mellitus Unknown Advance Directives No Advanced Directives Records Found Advance Directive Response Recorded Date/ Time Advance Directives No October 01, 2021 3:31pm Chief Complaint and Reason for Visit Chief Complaint check up Reason for Visit Type 2 diabetes gopi itus with hyperglycemia Wellness examination Additional Source Comments (unrecognized sect ion and content) No Status Records FoundNo Status Records FoundNo Status Records Found INFORMATION SOURCE (unrecogn ized section and content) DATE CREATED AUTHOR 11/22/2021 [facility] DATE CREATED AUTHOR AUTHOR'S ORGANIZ ATION [facility]/28[facility]2022 [facility] DATE CREATED AUTHOR AUTHOR'S ORGANIZ ATION 11/24/2024 [facility] REASON FOR VISIT (unrecogniz ed section and content) POSS UTI, FREQUENCY, URGENCY No Information Patient Care team informatio n (unrecognized section and content) Team Status: Active Member Role Status Dates Georgie Hills MD Primary Care Provider Active Team Status: Inactive Member Role Status Dates Georgie Hills MD Primary Care Provide r, Attending Provider Active Start: January 04, 2024 End: January 04, 2024 Goals (unrecognized section and content) Goals may be documented in a n alternate section FOR RECORDS PERTAINING TO PATIENTS WHO ARE OR HAVE BEEN ENROLLED IN A CHEMICAL DEPENDENCY/SUBSTANCEABUSE PROGRAM, SOME INFORMATION MAY BE OMITTED. This clinical summary was aggregated from multiple sources. Caution should be exercised in using it in the provision of clinical care. This summary normalizes information from multiple sources, and as a consequence, information in this document may materially change the coding, format and clinical context of patient data. In addition, data may be omitted in some cases. CLINICAL DECISIONS SHOULD BE BASED ON THE PRIMARY CLINICAL RECORDS. [employer] provides no warranty or guarantee of the accuracy or completeness of information in this document.
[2024-12-10 00:13] VITALS: BP 163/96; PULSE 88; TEMP 36.9; O2SAT 99; BMI 37.2
--- NOTE | 2024-12-10 00:35 | ED_ITS ---
HPI - Male Genitourinary General Chief complaint: Urogenital-Male Stated complaint: POSS PROSTATITIS COMPLICATION Time Seen by Provider: 12/10/24 00:22 Source: patient Mode of arrival: walk-in Limitations: no limitations History of Present Illness HPI Narrative: diagnosed with prostatitis by Urology 2 weeks ago and prescribed bactrim ds. has taken it for 2 weeks without improvement in his symptoms. Today Urology called in Doxycycline for him. He took one dose of doxycycline. States tonight he was just not feeling well and not able to get comfortable. No fever, nausea or discharge. Decided to come in to get checked out Related Data Home Medications ?Medication ?Instructions ?Recorded ?Confirmed doxycycline hyclate 100 mg capsule mg 12/10/24 metformin 1,000 mg tablet mg 12/10/24 tamsulosin 0.4 mg capsule mg PO 12/10/24 Allergies Allergy/AdvReac Type Severity Reaction Status Date / Time No Known Drug Allergies Allergy Verified 12/10/24 00:22 Review of Systems ROS Status of ROS 10 or more systems reviewed and unremark able except as noted in history and below PFSH PFSH Social History Little interest or pleasure in doing things: not at all Feeling down, depressed, or hopeless: not at all Exam Constitutional Vital Signs, click to edit/add: Last Vital Signs Temp 98.4 F 12/10/24 00:13 Pulse 88 12/10/24 00:13 Resp 18 12/10/24 00:13 BP 163/96 H 12/10/24 00:13 Pulse Ox 99 12/10/24 00:13 Common normals: no apparent distress, average body habitus, oriented x3, no limitations, healthy appearing, alert and well nourished [facility] Common normals: normocephalic and head/scalp atraumatic Eye Common normals: EOMs intact bilaterally and conjunctivae normal Respiratory Common normals: normal respiratory effort, no retractions, no use of accessory muscles and clear to auscultation bilaterally Cardio Common normals: regular rate, regular rhythm, S1 normal heart sound and S2 normal heart sound Extremity Common normals: normal to inspection and full ROM Neuro Common normals: oriented x3, CN's II-XII intact bilaterally, moves all extremities and no focal motor deficits Psych Appearance: grossly normal Course Vital Signs Vital signs: Vital Signs Temperature 98.4 F 12/10/24 00:13 Pulse Rate 88 12/10/24 00:13 Respiratory Rate 18 12/10/24 00:13 Blood Pressure 163/96 H 12/10/24 00:13 Pulse Oximetry 99 12/10/24 00:13 Temperature 98.4 F 12/10/24 00:13 Pulse Rate 88 12/10/24 00:13 Respiratory Rate 18 12/10/24 00:13 Blood Pressure 163/96 H 12/10/24 00:13 Pulse Oximetry 99 12/10/24 00:13 MDM - Male Genitourinary MDM Narrative Medical decision making narrative: patient being treated for prostatitis per Urology. Was on Bactrim ds for 2 weeks. He was switched to Doxycycline by Urology as the patient felt the Bactrim ds was not working. No fever or chills or flank pain. Exam neg.UA with evidence of hematuria and 0-2 WBCs. Glucose in urine also. Patient is diabetic. Patient reassured and advised to continue Doxycycline as prescribed by Urology Lab Data Labs: Lab Results 12/10/24 Range/Units 00:33 Urine Color Lt. yellow (YELLOW) Urine Clarity Clear (CLEAR) Urine pH 6.0 (5.0-9.0) Ur Specific [place] 1.025 (1.005-1.025) Urine Protein Negative (NEG/TRACE) mg/dL Urine Glucose (UA) 250 A (NEGATIVE) mg/dL Urine Ketones Trace A (NEGATIVE) mg/dL Urine Occult Blood Moderate A (NEGATIVE) Urine Nitrite Negative (NEGATIVE) Urine Bilirubin Negative (NEGATIVE) Urine Urobilinogen 0.2 (0.2-1.0) EU/dL Ur Leukocyte Esterase Negative (NEGATIVE) Urine RBC 5-10 A (0-2) #/HPF Urine WBC 0-2 A (NONE SEEN) #/HPF Ur Squamous Epith Cells Rare (NONE/RARE) #/LPF Urine Crystals None seen (None Seen) #/HPF Urine Bacteria None seen (NONE SEEN) #/HPF Urine Casts None seen (NONE SEEN) #/LPF Urine Mucus None seen (NONE SEEN) Ur Culture Indicated? No Discharge Plan Discharge Chief Complaint: Urogenital-Male Clinical Impression: Acute prostatitis, Hematuria Patient Disposition: Home, Self-Care Prescriptions / Home Meds: No Action doxycycline hyclate 100 mg capsule tamsulosin 0.4 mg capsule PO metformin 1,000 mg tablet Print Language: Sami Instructions: Prostatitis (ED), Hematuria (ED) Additional Instructions: use Aleve for discomfort and continue Doxycycline Referrals: Georgie Ordoñez MD [Primary Care Provider] - 1 week
--- NOTE | 2024-12-10 01:04 | PC.NURSE ---
Pt presents to ER for suprapubic/lower abdominal pain due to prostatitis Pt was diagnosed by Dr. Abraham 2 weeks ago and put on Bactrim for 2 weeks with Naproxen Pt called the office today and said he was not getting any relief - they stopped the Bactrim and put him on Doxy for 6 weeks Pt said the uncomfortable sensations are becoming too much to handle Pt states he had difficulty working and cannot sleep due to the constant feeling of a bursting bladder Pt able to give urine sample Pt bladder scanned after which showed no residual Urine sample obtained and sent to lab
[2024-12-10 01:06] LABS: Bilirubin Urine NEGATIVE (NEGATIVE); Blood Urine MODERATE (NEGATIVE); Clarity Urine CLEAR (CLEAR); Color Urine LT. YELLOW (YELLOW); Glucose Urine UA 250 mg/dL (NEGATIVE); Ketones Urine TRACE mg/dL (NEGATIVE); Leukocyte Esterase Urine NEGATIVE (NEGATIVE); Nitrite Urine NEGATIVE (NEGATIVE); Protein Urine NEGATIVE (NEG/TRACE); Specific Gravity Urine 1.025 (1.005-1.025); Urobilinogen Urine 0.2 EU/dL (0.2-1.0)
[2024-12-10 01:12] LABS: Bacteria Urine NONE SEEN #/HPF (NONE SEEN); Cast Seen? NONE SEEN #/LPF (NONE SEEN); Crystals Seen? None Seen #/HPF (None Seen); Mucus Urine NONE SEEN (NONE SEEN); Squamous Epithelial Cell Urine RARE #/LPF (NONE/RARE); Urine Culture Indicated NO; WBC Urine 0-2 #/HPF (NONE SEEN)
== END 2024-12-10 01:58 | disposition home or self-care (01) ==
PROVIDERS: Emergency Provider Internal Medicine; PCP Family Medicine
DX: N41.0 Acute prostatitis (principal); R31.9 Hematuria, unspecified; E11.9 Type 2 diabetes mellitus without complications; Z79.84 Long term (current) use of oral hypoglycemic drugs
CPT/HCPCS: 51798; 81001; 99283

== ENCOUNTER 2024-12-22 18:36 | Emergency (ER) | payer OTHER, SELFPAY ==
--- OUTSIDE RECORDS SUMMARY | 2024-12-22 18:40 | XMS_ITS | CCD ---
Author Organization [facility] Care Team Providers Care Neuroscience Director Na Name Role Phone Caryn Omer Unavailable REINIER, [...] Consulting Unavailable [place] Primary Care Physician NORBERT OWEN Attending UnavailNORBERT Whatley Attending Koffi sprague Allergies Allergy Classification Reported Allergen(s) Allergy Type Date of Onset Reaction(s) Facility (1 source) No Known Medication Allergies; Translations: [No Known Medication Allergies] Propensity to adverse reactions (disorder) [facility] Repository Medications Current Medications Medication Drug Class(es) Dates Sig (Normalized) Sig (Original) acetaminophen 325 mg / HYDROcodone bitartrate 5 mg oral tablet (4 sources) Opioid Agonist Start: 07-13-2022 [place] 325 mg-5 mg oral tablet 1 tab(s), [...] procedure., # 10 cap(s), Refills(s) 0, Pharmacy: [facility]/pharmacy #[id number], 189, cm, 07/13/22 10:13:00 EST, Height/Length Dosing, 132, kg, 07/13/22 10:13:00 EST, Weight Dosing Start Date: 07/13/22 Status: Ordered diazePAM 10 mg oral tablet (4 sources) Benzodiazepine Start: 07-13-2022 Valium 10 mg Tab 10 mg = 1 tab(s), Oral, Once, take one hour prior to procedure., # 1 tab(s), Refills(s) 0, Pharmacy: [facility]/pharmacy #[id number], 189, cm, 07/13/22 10:13:00 EST, Height/Length [...] week(s), # 56 tab(s), Refills(s) 0, Pharmacy: [facility]/pharmacy #[id number], 189, cm, 09/05/23 15:31:00 EST, Height/Length [...] 1 year [address] [place] [address] Additional Instructions: Patient Education Prostatitis [...] Hib, unspecified formulation 01/12/1993 Recorded Normal [facility] Comment on above: Result Comment: Elec tronically [...] LYNNETTE OWEN PA-C Where: [facility] [address] [place] [address]- Medications What How Much When Instructions New naproxen (Naprosyn 500 mg Tab) 1 Tablets By Mouth 2 times a day Duration: 14 Days with food Pickup at [facility]/pharmacy #[id number] New sulfamethoxazole-t rimethoprim (Bactrim D.S. 800 mg-160 mg Tab) 1 Tablets By Mouth 2 times a day Duration: 28 Days Pickup at [facility]/pharmacy #[id number] New tamsulosin (Flomax 0.4 mg Cap) 1 Capsules By Mouth Every day Duration: 90 Days Refills: 3 Pickup at [facility]/pharmacy #[id number] Unchanged metformin (metformin 1000 mg Tab) 1 Tablets Contact prescribing physician if questions or concerns Pharmacy Information [facility]/pharmacy #[id number]: [address], [place] [id number] [phone] Allergies No Known Medication Allergies Problems Ongoing [...] for choosing us for your care. Normal [facility] CBC AUTO DIFFon 05-14-2022 BASO # 0.0 103/ul Normal 0.0-0.1 [facility] Comment on above: Performed By: #### C BC #### [facility] [address] [address] [address] Solitario Ochoa Basophils/100 WBC (Bld) 0.3 % Normal 0.2-2.0 [facility] Comment on above: Performed By: #### C BC #### [facility] [address] [place] [address] Dr. Solitario Ochoa EO # 0.1 103/ul Normal 0.0-0.7 [facility] Comment on above: Performed By: #### C BC #### [facility] [address] [place] [address] Dr. Solitario Ochoa Eosinophils/100 WBC (Bld) 1.9 % Normal 0.9-7.0 [facility] Comment on above: Performed By: #### C BC #### [facility] [address] [place] [address] Dr. Solitario Ochoa Erythrocyte distribution width (RBC) [Ratio] 13.6 % Normal 11.0-15.0 [facility] Comment on above: Performed By: #### C BC #### [facility] [address] [place] [address] Dr. Solitario Ochoa Hematocrit (Bld) [Volume fraction] 43.5 % Normal 42.0-54.0 [facility] Comment on above: Performed By: #### C BC #### [facility] [address] [place] [address] Dr. Solitario Ochoa Hemoglobin (Bld) [Mass/Vol] 14.7 g/dL Normal 14.0-18.0 [facility] Comment on above: Performed By: #### C BC #### [facility] [address] [place] [address] Dr. Solitario Ochoa IG # 0.04 10e3/ul Critically high 0.00-0.03 [facility] Comment on above: Performed By: #### C BC #### [facility] [address] [place] [address] Dr. Solitario Ochoa IG % 0.6 % Critically high 0.0-0.5 [facility] Comment on above: Performed By: #### C BC #### [facility] [address] [place] [address] Dr. Solitario Ochoa LYMPH # 1.5 103/ul Normal 1.2-3.8 [facility] Comment on above: Performed By: #### C BC #### [facility] [address] [place] [address] Dr. Solitario Ochoa Lymphocytes/100 WBC (Bld) 21.8 % Normal 20.5-60.0 [facility] Comment on above: Performed By: #### C BC #### [facility] [address] [place] [address] Dr. Solitario Ochoa MANUAL DIFF REQ NO Normal [facility] Comment on above: Performed By: #### C BC #### [facility] [address] [place] [address] Dr. Solitario Ochoa MCH (RBC) [Entitic mass] 27.9 pg Normal 25.9-34.0 [facility] Comment on above: Performed By: #### C BC #### [facility] [address] [place] [address] Dr. Solitario Ochoa MCHC (RBC) [Mass/Vol] 33.8 g/dL Normal 29.9-35.2 [facility] Comment on above: Performed By: #### C BC #### [facility] [address] [place] [address] Dr. Solitario Ochoa MCV (RBC) [Entitic vol] 82.7 fL Normal 80.0-94.0 [facility] Comment on above: Performed By: #### C BC #### [facility] [address] [place] [address] Dr. Solitario Ochoa MONO # 0.9 103/ul Critically high 0.3-0.8 [facility] Comment on above: Performed By: #### C BC #### [facility] [address] [place] [address] Dr. Solitario Ochoa Monocytes/100 WBC (Bld) 13.3 % Critically high 1.7-12.0 [facility] Comment on above: Performed By: #### C BC #### [facility] [address] [place] [address] Dr. Solitario Ochoa NEUT # 4.3 103/ul Normal 1.4-6.5 [facility] Comment on above: Performed By: #### C BC #### [facility] [address] [place] [address] Dr. Solitario Ochoa Neutrophils/100 WBC (Bld) 62.1 % Normal 43.0-75.0 [facility] Comment on above: Performed By: #### C BC #### [facility] [address] [place] [address] Dr. Solitario Ochao Platelet mean volume (Bld) [Entitic vol] 10.4 fL Normal 9.5-13.5 [facility] Comment on above: Performed By: #### C BC #### [facility] [address] [place] [address] Dr. Solitario Ochoa PLT 192 103/ul Normal 150-450 [facility] Comment on above: Performed By: #### C BC #### [facility] [address] [place] [address] Dr. Solitario Ochoa RBC 5.26 106/ul Normal 4.70-6.10 [facility] Comment on above: Performed By: #### C BC #### [facility] [address] [place] [address] Dr. Solitario Ochoa WBC 7.0 103/ul Normal 4.0-11.0 [facility] Comment on above: Performed By: #### C BC #### [facility] [address] [place] [address] Dr. Solitario Ochoa GLYCOHEMOGLOBIN A1Con 2021 ADA RECOMMENDATION SEE BELOW Normal [facility] Comment on above: Result Comment: ADA RECOMMENDED LIMIT 4.0 - 6.0 ADA THERAPEUTIC TARGET < 7.0 ACTION SUGGESTED > 7.0 Performed By: #### A 1C #### [facility] [address] [place] [address] Dr. Solitario Ochoa Glucose [Mass/Vol] 160 mg/dL Normal [facility] Comment on above: Performed By: #### A 1C #### [facility] [address] [address] [address] Solitario Ochoa HbA1c (Bld) [Mass fraction] 7.2 % Critically high 4.5-6.2 [facility] Comment on above: Performed By: #### A 1C #### [facility] [address] [place] [address] Dr. Solitario Ochoa LIPID PROFILEon 05-14-2022 CHOL-HDL RATIO NORM SEE BELOW Normal [facility] Comment on above: Result Comment: 3.3 - 4.4 LOW RISK 4.4 - 7.1 AVERAGE RISK 7.1 - 11.0 MODERATE RISK >11.0 HIGH RISK Performed By: #### C MP, LIPID #### [facility] [address] [place] [address] Dr. Solitario Ochoa Cholesterol [Mass/Vol] 208 mg/dL Critically high <=200 [facility] Comment on above: Performed By: #### C MP, LIPID #### [facility] [address] [place] [address] Dr. Solitario Ochoa Cholesterol in HDL [Mass/Vol] 52 mg/dL Normal 40-60 [facility] Comment on above: Performed By: #### C MP, LIPID #### [facility] [address] [address] [address] Solitario Ochoa Cholesterol in LDL [Mass/Vol] 131.8 mg/dL Normal [facility] Comment on above: Performed By: #### C MP, LIPID #### [facility] [address] [place] [address] Dr. Solitario Ochoa Cholesterol.total/Ch olesterol in HDL [Mass ratio] 4.0 {ratio} Normal [facility] Comment on above: Performed By: #### C MP, LIPID #### [facility] [address] [place] [address] Dr. Solitario Ochoa HDL NORMAL > or = 60 mg/dl - LOW CARDIOVASCULAR RISK <40 mg/dl - HIGH CARDIOVASCULAR RISK Normal [facility] Comment on above: Performed By: #### C MP, LIPID #### [facility] [address] [place] [address] Dr. Solitario Ochoa LDL CALC NORMAL SEE BELOW Normal [facility] Comment on above: Result Comment: <100 mg/dl OPTIMAL 100 - 129 mg/dl NEAR OR ABOVE OPTIMAL 130 - 159 mg/dl BORDERLINE HIGH 160 - 189 mg/dl HIGH >190 mg/dl VERY HIGH Performed By: #### C MP, LIPID #### [facility] [address] [place] [address] Dr. Solitario Ochoa Triglyceride [Mass/Vol] 121 mg/dL Normal <=150 [facility] Comment on above: Performed By: #### C MP, LIPID #### [facility] [address] [place] [address] Dr. Solitario Ochoa VLDL CALC 24.2 mg/dL Normal [facility] Comment on above: Performed By: #### C MP, LIPID #### [facility] [address] [place] [address] Dr. Solitario Ochoa PROF 14(COMP METB)on 022 Albumin [Mass/Vol] 4.0 g/dL Normal 3.4-5.0 [facility] Comment on above: Performed By: #### C MP, LIPID #### [facility] [address] [place] [address] Dr. Solitario Ochoa Albumin/Globulin [Mass ratio] 1.1 {ratio} Normal [facility] Comment on above: Performed By: #### C MP, LIPID #### [facility] [address] [place] [address] Dr. Solitario Ochoa ALP [Catalytic activity/Vol] 53 U/L Normal 46-116 [facility] Comment on above: Performed By: #### C MP, LIPID #### [facility] [address] [place] [address] Dr. oSlitario Ochoa ALT [Catalytic activity/Vol] 49 U/L Normal 16-63 [facility] Comment on above: Performed By: #### C MP, LIPID #### [facility] [address] [address] [address] Solitario Ochoa Anion gap [Moles/Vol] 13.1 mmol/L Normal [facility] Comment on above: Performed By: #### C MP, LIPID #### [facility] [address] [address] [address] Solitario Ochoa AST [Catalytic activity/Vol] 28 U/L Normal 15-37 [facility] Comment on above: Performed By: #### C MP, LIPID #### [facility] [address] [place] [address] Dr. Solitario Ochoa Bilirubin [Mass/Vol] 0.9 mg/dL Normal 0.2-1.0 [facility] Comment on above: Performed By: #### C MP, LIPID #### [facility] [address] [place] [address] Dr. Solitario Ochoa Calcium [Mass/Vol] 8.7 mg/dL Normal 8.5-10.1 [facility] Comment on above: Performed By: #### C MP, LIPID #### [facility] [address] [place] [address] Dr. Solitario Ochoa Chloride [Moles/Vol] 102 mmol/L Normal 98-107 [facility] Comment on above: Performed By: #### C MP, LIPID #### [facility] [address] [place] [address] Dr. Solitario Ochoa CO2 [Moles/Vol] 27.1 mmol/L Normal 21.0-32.0 [facility] Comment on above: Performed By: #### C MP, LIPID #### [facility] [address] [place] [address] Dr. oSlitario Ochoa Creatinine [Mass/Vol] 0.85 mg/dL Normal 0.70-1.30 [facility] Comment on above: Performed By: #### C MP, LIPID #### [facility] [address] [address] [address] Solitario Ochoa EGFR-AF MALAWIAN >60 Normal >=60 [facility] Comment on above: Performed By: #### C MP, LIPID #### [facility] [address] [address] [address] Solitario Ochoa EGFR-NON AF MALAWIAN >60 Normal >=60 [facility] Comment on above: Performed By: #### C MP, LIPID #### [facility] [address] [address] [address] Solitario Ochoa Globulin (S) [Mass/Vol] 3.7 g/dL Normal [facility] Comment on above: Performed By: #### C MP, LIPID #### [facility] [address] [place] [address] Dr. Solitario Ochoa Glucose [Mass/Vol] 177 mg/dL Critically high 74-[address] [facility] Comment on above: Performed By: #### C MP, LIPID #### [facility] [address] [place] [address] Dr. Solitario Ochoa Potassium [Moles/Vol] 4.2 mmol/L Normal 3.5-5.1 [facility] Comment on above: Performed By: #### C MP, LIPID #### [facility] [address] [place] [address] Dr. Solitario Ochoa Protein [Mass/Vol] 7.7 g/dL Normal 6.4-8.2 [facility] Comment on above: Performed By: #### C MP, LIPID #### [facility] [address] [place] [address] Dr. Solitario Ochoa Sodium [Moles/Vol] 138 mmol/L Normal 136-145 [facility] Comment on above: Performed By: #### C MP, LIPID #### [facility] [address] [place] [address] Dr. Solitario Ochoa Urea nitrogen [Mass/Vol] 11.0 mg/dL Normal 7.0-18.0 [facility] Comment on above: Performed By: #### C MP, LIPID #### [facility] [address] [place] [address] Dr. Solitario Ochoa Urea nitrogen/Creatinine [Mass ratio] 12.9 mg/mg Normal [facility] Comment on above: Performed By: #### C MP, LIPID #### [facility] [address] [place] [address] Dr. Solitario Ochoa CBC AUTO DIFFon 10-15-2021 BASO # 0.0 103/ul Normal 0.0-0.1 [facility] Comment on above: Performed By: #### C BC #### [facility] [address] [place] [address] Dr. Solitario Ochoa Basophils/100 WBC (Bld) 0.3 % Normal 0.2-2.0 [facility] Comment on above: Performed By: #### C BC #### [facility] [address] [place] [address] Dr. Solitario Ochoa EO # 0.1 103/ul Normal 0.0-0.7 [facility] Comment on above: Performed By: #### C BC #### [facility] [address] [place] [address] Dr. Solitario Ochoa Eosinophils/100 WBC (Bld) 1.3 % Normal 0.9-7.0 [facility] Comment on above: Performed By: #### C BC #### [facility] [address] [place] [address] Dr. Solitario Ochoa Erythrocyte distribution width (RBC) [Ratio] 13.9 % Normal 11.0-15.0 [facility] Comment on above: Performed By: #### C BC #### [facility] [address] [place] [address] Dr. Solitario Ochoa Hematocrit (Bld) [Volume fraction] 44.4 % Normal 42.0-54.0 [facility] Comment on above: Performed By: #### C BC #### [facility] [address] [place] [address] Dr. Solitario Ochoa Hemoglobin (Bld) [Mass/Vol] 15.2 g/dL Normal 14.0-18.0 [facility] Comment on above: Performed By: #### C BC #### [facility] [address] [place] [address] Dr. Solitario Ochoa IG # 0.04 10e3/ul Critically high 0.00-0.03 [facility] Comment on above: Performed By: #### C BC #### [facility] [address] [place] [address] Dr. Solitario Ochoa IG % 0.5 % Normal 0.0-0.5 [facility] Comment on above: Performed By: #### C BC #### [facility] [address] [place] [address] Dr. Solitario Ochoa LYMPH # 2.5 103/ul Normal 1.2-3.8 [facility] Comment on above: Performed By: #### C BC #### [facility] [address] [place] [address] Dr. Solitario Ochoa Lymphocytes/100 WBC (Bld) 31.1 % Normal 20.5-60.0 [facility] Comment on above: Performed By: #### C BC #### [facility] [address] [place] [address] Dr. Solitario Ochoa MANUAL DIFF REQ NO Normal [facility] Comment on above: Performed By: #### C BC #### [facility] [address] [place] [address] Dr. Solitario Ochoa MCH (RBC) [Entitic mass] 28.1 pg Normal 25.9-34.0 [facility] Comment on above: Performed By: #### C BC #### [facility] [address] [place] [address] Dr. Solitario Ochoa MCHC (RBC) [Mass/Vol] 34.2 g/dL Normal 29.9-35.2 [facility] Comment on above: Performed By: #### C BC #### [facility] [address] [place] [address] Dr. Solitario Ochoa MCV (RBC) [Entitic vol] 82.1 fL Normal 80.0-94.0 [facility] Comment on above: Performed By: #### C BC #### [facility] [address] [place] [address] Dr. Solitario Ochoa MONO # 0.8 103/ul Normal 0.3-0.8 [facility] Comment on above: Performed By: #### C BC #### [facility] [address] [place] [address] Dr. Solitario Ochoa Monocytes/100 WBC (Bld) 9.7 % Normal 1.7-12.0 [facility] Comment on above: Performed By: #### C BC #### [facility] [address] [place] [address] Dr. Solitario Ochoa NEUT # 4.5 103/ul Normal 1.4-6.5 [facility] Comment on above: Performed By: #### C BC #### [facility] [address] [place] [address] Dr. Solitario Ochoa Neutrophils/100 WBC (Bld) 57.1 % Normal 43.0-75.0 [facility] Comment on above: Performed By: #### C BC #### [facility] [address] [place] [address] Dr. Solitario Ochoa Platelet mean volume (Bld) [Entitic vol] 10.3 fL Normal 9.5-13.5 [facility] Comment on above: Performed By: #### C BC #### [facility] [address] [place] [address] Dr. Solitario Ochoa PLT 234 103/ul Normal 150-450 [facility] Comment on above: Performed By: #### C BC #### [facility] [address] [place] [address] Dr. Solitario Ochoa RBC 5.41 106/ul Normal 4.70-6.10 [facility] Comment on above: Performed By: #### C BC #### [facility] [address] [place] [address] Dr. Solitario Ochoa WBC 7.9 103/ul Normal 4.0-11.0 [facility] Comment on above: Performed By: #### C BC #### [facility] [address] [place] [address] Dr. Solitario Ochoa CULTURE URINEon 10-15-2021 CULTURE URINE Culture Observations: LIGHT GROWTH OF MIXED SKIN GLORIA. NO POTENTIAL PATHOGENS SEEN. Normal [facility] Comment on above: Performed By: #### U RCX #### [facility] [address] [address] [address] Solitario Ochoa GLYCOHEMOGLOBIN A1Con 2021 ADA RECOMMENDATION ADA THERAPEUTIC TARGET 6.0 - 7.0 ACTION SUGGESTED > 7.0 Normal [facility] Comment on above: Performed By: #### A 1C #### [facility] [address] [place] [address] Dr. Solitario Ochoa Glucose [Mass/Vol] 154 mg/dL Normal [facility] Comment on above: Performed By: #### A 1C #### [facility] [address] [place] [address] Dr. Solitario Ochoa HbA1c (Bld) [Mass fraction] 7.0 % Critically high <=6.0 [facility] Comment on above: Performed By: #### A 1C #### [facility] [address] [place] [address] Dr. Solitario Ochoa PROF CHEM 8 (BAS METB)on Anion gap [Moles/Vol] 11.6 mmol/L Normal [facility] Comment on above: Performed By: #### B MP #### [facility] [address] [place] [address] Dr. Solitario Ochoa Calcium [Mass/Vol] 9.4 mg/dL Normal 8.4-10.2 [facility] Comment on above: Performed By: #### B MP #### [facility] [address] [place] [address] Dr. Solitario Ochoa Chloride [Moles/Vol] 100 mmol/L Normal 98-107 [facility] Comment on above: Performed By: #### B MP #### [facility] [address] [place] [address] Dr. Solitario Ochoa CO2 [Moles/Vol] 29.4 mmol/L Normal 22.0-30.0 [facility] Comment on above: Performed By: #### B MP #### [facility] [address] [place] [address] Dr. Solitario Ochoa Creatinine [Mass/Vol] 0.72 mg/dL Normal 0.66-1.25 [facility] Comment on above: Performed By: #### B MP #### [facility] [address] [address] [address] Solitario Ochoa EGFR-AF MALAWIAN >60 Normal >=60 [facility] Comment on above: Performed By: #### B MP #### [facility] [address] [address] [address] Solitario Ochoa EGFR-NON AF MALAWIAN >60 Normal >=60 [facility] Comment on above: Performed By: #### B MP #### [facility] [address] [address] [address] Solitario Ochoa Glucose [Mass/Vol] 140 mg/dL Critically high 74-[address] [facility] Comment on above: Performed By: #### B MP #### [facility] [address] [address] [address] Solitario Ochoa Potassium [Moles/Vol] 4.0 mmol/L Normal 3.4-5.0 [facility] Comment on above: Performed By: #### B MP #### [facility] [address] [address] [address] Solitario Ochoa Sodium [Moles/Vol] 137 mmol/L Normal 137-145 [facility] Comment on above: Performed By: #### B MP #### [facility] [address] [address] [address] Solitario Ochoa Urea nitrogen [Mass/Vol] 15.0 mg/dL Normal 9.0-20.0 [facility] Comment on above: Performed By: #### B MP #### [facility] [address] [address] [address] Solitario Ochoa Urea nitrogen/Creatinine [Mass ratio] 20.8 mg/mg Normal [facility] Comment on above: Performed By: #### B MP #### [facility] [address] [address] [address] Solitario Ochoa UA RANDOM W/MICROSCOPICon BACTERIA NONE SEEN Normal NONE SEEN [facility] Comment on above: Performed By: #### U AMIC #### [facility] [address] [address] [address] Solitario Ochoa Bilirubin Ql (U) Negative Normal NEGATIVE [facility] Comment on above: Performed By: #### U AMIC #### [facility] [facility] [address] [address] [address] Solitario Ochoa CAST NONE SEEN Normal NONE SEEN [facility] Comment on above: Performed By: #### U AMIC #### [facility] [address] [address] [address] Solitario Ochoa Clarity (U) CLEAR Normal CLEAR [facility] Comment on above: Performed By: #### U AMIC #### [facility] [address] [address] [address] Solitario Ochoa Color (U) LT. YELLOW Normal YELLOW [facility] Comment on above: Performed By: #### U AMIC #### [facility] [address] [address] [address] Solitario Ochoa Crystals LM Nom (Urine sed) NONE SEEN Normal NONE SEEN [facility] Comment on above: Performed By: #### U AMIC #### [facility] [address] [address] [address] Solitario Ochoa Epithelial cells LM Ql (Urine sed) RARE Normal NONE SEEN /RARE [facility] Comment on above: Performed By: #### U AMIC #### [facility] [address] [address] [address] Solitario Ochoa Glucose Ql (U) Negative Normal NEGATIVE [facility] Comment on above: Performed By: #### U AMIC #### [facility] [address] [address] [address] Solitario Ochoa Hemoglobin Ql (U) TRACE-LYSED Abnormal NEGATIVE [facility] Comment on above: Performed By: #### U AMIC #### [facility] [address] [address] [address] Solitario Ochoa Ketones Ql (U) Negative Normal NEGATIVE [facility] Comment on above: Performed By: #### U AMIC #### [facility] [address] [address] [address] Solitario Ochoa LEUKOCYTES Negative Normal NEGATIVE [facility] Comment on above: Performed By: #### U AMIC #### [facility] [address] [address] [address] Solitario Ochoa MUCOUS NONE SEEN Normal NONE SEEN [facility] Comment on above: Performed By: #### U AMIC #### [facility] [address] [address] [address] Solitario Ochoa Nitrite Ql (U) Negative Normal NEGATIVE [facility] Comment on above: Performed By: #### U AMIC #### [facility] [address] [address] [address] Solitario Ochoa pH (U) 6.0 [pH] Normal 5-9 [facility] Comment on above: Performed By: #### U AMIC #### [facility] [address] [place] [address] Dr. Solitario Ochoa RBC 2-5 Abnormal 0-2 [facility] Comment on above: Performed By: #### U AMIC #### [facility] [address] [place] [address] Dr. Solitario Ochoa SPEC GRAVITY 1.025 Normal 1.005-<=1.025 [facility] Comment on above: Performed By: #### U AMIC #### [facility] [address] [place] [address] Dr. Solitario Ochoa UA PROTEIN Negative Normal NEGATIVE/ TRACE [facility] Comment on above: Performed By: #### U AMIC #### [facility] [address] [place] [address] Dr. Solitario Ochoa Urobilinogen Qn (U) 0.2 {Nelly'U}/dL Normal 0.2 - 1. 0 [facility] Comment on above: Performed By: #### U AMIC #### [facility] [address] [place] [address] Dr. Solitario Ochoa WBC NONE SEEN Normal NONE SEEN [facility] Comment on above: Performed By: #### U AMIC #### [facility] [address] [address] [address] Solitario Ochoa Chlamydia/GC/Trich NAAon Chlamydia Trachomotis, CAMMIE Negative Normal Negative [facility] Comment on above: Order Comment: SOURC E OF SPECIMEN: YELLOW UR APTIMA Performed By: #### C UU #### [address] #### GCCHLAMTRI #### [facility] , Neisseria Gonorrhoeae, CAMMIE Negative Normal Negative [facility] Comment on above: Order Comment: SOURC E OF SPECIMEN: YELLOW UR APTIMA Performed By: #### C UU #### [address] #### GCCHLAMTRI #### [facility] , Trichomonas CAMMIE Negative Normal Negative [facility] Comment on above: Order Comment: SOURC E OF SPECIMEN: YELLOW UR APTIMA Result Comment: Perf ormed at: =G - [facility] [address] [id number] Nurse Executive: Yisel Perze MD, Phone: [phone] PERFORMED BY: [place] [address] PATHOLOGIST GENERAL SCIENCE TEACHER VIDHI BAER M.D. Performed By: #### C UU #### [address] #### GCCHLAMTRI #### [facility] , Urinalysis - AUTOMATEDon Appearance (U) clear [employer] Other Bilirubin Ql (U) Negative [employer] Other Color (U) dark yellow [facility] Other Glucose Ql (U) Negative [employer] Other Hemoglobin Ql (U) trace Causes Other Ketones Ql (U) trace [employer] Other Leukocyte esterase Test strip Ql (U) Negative [facility] Other Nitrite Ql (U) Negative [employer] Other pH (U) 6.0 [pH] [facility] Other Protein Ql (U) trace [employer] Other Specific gravity (U) [Rel density] >1.030 [facility] Other Urobilinogen (U) [Mass/Vol] 0.2 mg/dL [facility] Other Urinalysis - AUTOMATED [facility] Other Urine Cultureon 09-28-2021 Bacteria identified Cx Nom (U) 20,000 colonies/ml mixed bacterial skin contaminants 2 Days PERFORMED BY: [place] [address] PATHOLOGIST GENERAL SCIENCE TEACHER VIDHI BAER M.D. Normal [facility] Comment on above: Performed By: #### C UU #### [facility] [address] [place] [address] #### GCCHLAMTRI #### [facility] , Covid-19 PCR (CVDTB)on 08-05 SARS-CoV-2 (COVID-19) RNA CAMMIE+probe Ql (Unsp spec) Detected Critically abnormal NOT DETECTED [facility] Comment on above: Result Comment: This test is not yet approved or cleared by the [place] FDA. When there are no FDA-approved or cleared tests available, and other criteria are met, FDA can make tests available under an emergency access mechanism called an Emergency Use Authorization (EUA). The EUA for this test is supported by the [place] of Health and Human Service's (HHS's) declaration [...] longer be used). Performed By: #### [facility] #### [facility] [address] [place] [address] Dr. Solitario Ochoa Vital Signs Date Time Vital Sign Value Performing Clinician Facility 01-04-2024 15:55-0400 Body height 187.96 cm [facility] 01-04-2024 15:55-0400 Body mass index (BMI) [Ratio] 38.2 kg/m2 [facility] 01-04-2024 15:55-0400 Body weight 134.88 kg [facility] 01-04-2024 15:55-0400 Diastolic blood pressure 96 mm[Hg] [facility] 01-04-2024 15:55-0400 Heart rate 89 /min [facility] 01-04-2024 15:55-0400 Systolic blood pressure 154 mm[Hg] [facility] 09-05-2023 15:30-0500 Blood Pressure Location LYNNETTE OWEN [facility] 09-05-2023 15:30-0500 Diastolic blood pressure 89 mm[Hg] LYNNTETE BLUMRY [facility] 09-05-2023 15:30-0500 Heart rate 79 /min LYNNETTE BRAYDEN [facility] 09-05-2023 15:30-0500 Respiratory rate 16 /min LYNNETTE BRAYDEN [facility] 09-05-2023 15:30-0500 Systolic blood pressure 138 mm[Hg] LYNNETTE BRAYDEN [facility] 07-13-2022 09:51-0500 Blood Pressure Location Nicholas MENJIVAR [facility] 07-13-2022 09:51-0500 Diastolic blood pressure 91 mm[Hg] Nicholas ComptTIA [facility] 07-13-2022 09:51-0500 Heart rate 81 /min Nicholas ComptTIA [facility] 07-13-2022 09:51-0500 Respiratory rate 16 /min Nicholas ComptTIA [facility] 07-13-2022 09:51-0500 Systolic blood pressure 152 mm[Hg] Nicholas ComptTIA [facility] 09-28-2021 17:20-0500 Body height 187.96 cm Caryn Ginty Other [facility] Other 09-28-2021 17:20-0500 Body mass index (BMI) [Ratio] 38.9 kg/m2 Caryn Ginty Other [facility] Other 09-28-2021 17:20-0500 Body temperature 97.5 [degF] Caryn Ginty Other [facility] Other 09-28-2021 17:20-0500 Body weight 137.44 kg Caryn Ginty Other [facility] Other 09-28-2021 17:20-0500 Diastolic blood pressure 95 mm[Hg] Caryn Ginty Other [facility] Other 09-28-2021 17:20-0500 Respiratory rate 18 /min Caryn Ginty Other [facility] Other 09-28-2021 17:20-0500 SaO2% (BldA) [Mass fraction] 99 % Caryn Cherylloyd Other [facility] Other 09-28-2021 17:20-0500 Systolic blood pressure 156 mm[Hg] Caryn Cherylloyd Other [facility] Other Encounters Encounter Date Encounter Type Care Provider Facility Start: 11-21-2025 ambulatory PA-C LYNNETTE OWEN Facility:[facility] [place] Start: 11-21-2024 End: 11-21-2024 ambulatory PA-C LYNNETTE OWEN Facility:[facility] Start: 01-04-2024 Patient encounter status [facility] Start: 01-04-2024 End: 01-04-2024 ambulatory [facility] Work Phone: Start: 01-04-2024 End: 01-04-2024 Encounter for general adult medical examination without abnormal findings [facility] Start: 01-04-2024 End: 01-04-2024 Patient encounter procedure [facility] Physician [facility] Work Phone: Start: 09-05-2023 End: 09-05-2023 Patient encounter procedure LYNNETTE OWEN [facility] [place] Start: 11-25-2022 End: 11-25-2022 Lab Drop off Nicholas MENJIVAR [facility] Start: 09-14-2022 End: 09-14-2022 Patient encounter procedure Nicholas MENJIVAR [facility] Start: 09-01-2022 End: 09-01-2022 Patient encounter procedure Nicholas MENJIVAR [facility] Start: 07-13-2022 End: 07-13-2022 Patient encounter procedure Nicholas MENJIVAR [facility] Start: 05-20-2022 Encounter for genera l adult medical examination without abnormal findings DR GEORGIE HILLS [facility] Start: 05-14-2022 End: 05-15-[address] GEORGIE HILLS Facility:[facility] Start: 05-14-2022 End: 05-15-2022 Encounter for general adult medical examination without abnormal findings DR GEORGIE HILLS Facility:[facility] Start: 10-15-2021 End: 10-16-[address] GEORGIE HILLS Facility:[facility] Start: 10-01-2021 End: 10-01-2021 ambulatory Caryn Ginty Other [facility] Other Start: 10-01-2021 Telephone encounter Caryn Ginty [facility] [address] Start: 09-28-2021 End: 09-28-2021 ambulatory Caryn Ginty Other [facility] Other Start: 09-28-2021 Office outpatient vi sit 15 minutes Caryn Ginty [facility] Start: 09-01-2021 End: 09-01-[address] GEORGIE HILLS Facility:[facility] Procedures Date Procedure Procedure Detail Performing Clinician Start: 09-01-2022 Vasectomy Nicholas ARAIZA Plan of Treatment Date Care Activity Detail Author Comprehensive metabo lic 2000 panel - Serum or Plasma [facility] enter Microalbumin [Mass/volume] in Urine [facility] Immunizations Immunization Date Immunization Notes Care Provider Fa cility 11-21-2020 SARS-CoV-2 (COVID-19 ) mRNA BNT-162b2 vax Nicholas MENJIVAR [facility] 10-31-2020 SARS-CoV-2 (COVID-19 ) mRNA BNT-917b2 vax Nicholas MENJIVAR [facility] 06-19-2019 influenza virus vaccine, unspecified formulation Nicholas MENJIVAR [facility] 06-25-2009 influenza virus vaccine, H1N1, live Nicholas MENJIVAR [facility] 03-30-2000 hepatitis B vaccine, pediatric or pediatric/adolescent dosage Nicholas MENJIVAR [facility] 03-30-2000 measles, mumps and rubella virus vaccine Nicholas MENJIVAR [facility] 01-12-1993 Hib, unspecified formulation Nicholas MENJIVAR [facility] 01-12-1993 measles, mumps and rubella virus vaccine Nicholas MENJIVAR [facility] Payers Date Payer Category Payer Unknown [id number] 1987 Unknown [id number] 1987 Unknown [id number] 1987 Unknown [id number] 1987 Unknown [id number] 1959 Private Health Insurance [id number] Self-pay Self Pay [id number] Unknown Lexi GARCIA/BS [id number] Social History Date Type Detail Facility Sex Assigned At [facility] Start: 03-06-2016 End: 07-13-2022 Tobacco smoking status Never smoked tobacco (finding) [facility] Tobacco smoking status Never [facility] Start: 1985 Sex Assigned At Male F [facility] Functional Status Date Assessment Result Facility 09-05-2023 Functional Status N/A [facility] 09-14-2022 Functional Status N/A [facility] 08-30-2022 Functional Status N/A [facility] 07-13-2022 Functional Status N/A [facility] Clinical Notes 09-28-2021 to 11-22-2024 LaboratoryLaboratory Note [...] these instructions at home: Medicines ??? Take qtzc-fbp-wmlqqju and prescription medicines only as told by [...] This is important. (more content not included)... [facility] 09-05-2023 Hospital Discharg e instructions Patient Education [...] Follow these instructions at home: Medicines Take tsah-bng-rtyxeap and prescription medicines only as told by [...] important. Where to find more information [employer] [place] of Diabetes and Digestive and Kidney Diseases: [...] depends on the type of prostatitis. Take dnua-czf-qwdfrxv and prescription medicines only as told by [...] Document Reviewed: 09/25/2020 Elsevier Patient Education 2022 [employer]. Follow Up Care 09/01/2023 14:24:29 With:LYNNETTE OWEN PA-C, URL Address: [address] [place] [address] [phone] When: only if needed [facility] 11-25-2022 Evaluation + Plan note Diagnostic Tests PendingSemen Analysis Post Vasectomy 11/25/22Sperm Morphology 11/25/22 Future Scheduled TestsSemen Analysis Post Vasectomy 09/14/22 [facility] 09-14-2022 Evaluation + Plan note Future Scheduled TestsSemen Analysis Post Vasectomy 09/14/22 [facility] 09-14-2022 Hospital Discharg e instructions Patient Education [...] 08/21/2006 Document Revised: 08/23/2018 Document Reviewed: 09/23/2017 [employer] Patient Education 2020 [employer]. Follow Up Care 07/13/2022 10:35:16 With:TIARA AGUIRRE, Nicholas Malagon, URL Address: [address] [place] [address] [place], [place] [id number]- When: only if needed Comments:renetta [facility] 09-01-2022 Hospital Discharg e instructions Patient Education [...] With:Nicholas MENJIVAR Address: [address] [place], [place] [id number] [facility] (1) When:2 to 4 weeks Comments:Call for followup appointment [facility] 07-13-2022 Hospital Discharg e instructions Patient Education [...] Follow these instructions at home: Medicines Take syic-lvc-jthclvz and prescription medicines only as told by [...] 03/10/2006 Document Revised: 08/03/2018 Document Reviewed: 11/17/2017 [employer] Patient Education 2020 [employer]. Follow Up Care 03/29/2022 13:05:50 With:TIARA AGUIRRE, Nicholas Malagon, URL Address: [address] [place] [address]- When: Unknown [facility] 09-28-2021 Evaluation note Encounter Date Diagnosis Assessment [...] understanding and is agreeable with treatment plan [facility] Other Evaluation + Plan note Future Appointments Appointment Date:08/18/2022 08:15:00 AM Scheduled Provider: Location:[facility] Appointment Type:Urology CALL PAT FT Appointment Date:09/01/2022 08:00:00 AM Scheduled Provider: Location:[facility] Appointment Type:Urology FT Appointment Date:09/14/2022 07:45:00 AM Scheduled Provider:Nicholas MENJIVAR MD Location:[facility] Appointment Type:URO Office Visit [facility] Evaluation + Plan note Future Appointments Appointment Date:09/14/2022 08:00:00 AM Scheduled Provider:Nicholas MENJIVAR MD Location:[facility] note[facility] InformationNort [facility] Other Evaluation note* Diagnosis Onset Date Resolution Status Type 2 diabetes mellitus with hyperglycemia acute Wellness examination [facility] Work Phone: History general Narrative - Reported* Type Description Date Medical History pre hypertension Surgical History oral surgery Hospitalization History see surgical hx [facility] Other Hospital course Narrative No data available for this section [facility] Hospital Discharge instructions No data available for this section [facility] data available for this section [facility] [place] Summary Purpose Family History No Family History [...] section and content) DATE CREATED AUTHOR 11/22/2021 [facility] DATE CREATED AUTHOR AUTHOR'S ORGANIZ ATION 06/28/2022 [facility] DATE CREATED AUTHOR AUTHOR'S ORGANIZ ATION 11/24/2024 [facility] REASON FOR VISIT (unrecogniz ed section and [...] BE BASED ON THE PRIMARY CLINICAL RECORDS. [facility] provides no warranty or guarantee of the accuracy or completeness of information in this document.
[2024-12-22 18:59] VITALS: BP 168/98; PULSE 88; TEMP 36.8; O2SAT 99; BMI 37.2
[2024-12-22 19:19] LABS: Bilirubin Urine NEGATIVE (NEGATIVE); Blood Urine TRACE-I (NEGATIVE); Clarity Urine CLEAR (CLEAR); Color Urine LT. YELLOW (YELLOW); Glucose Urine UA NEGATIVE (NEGATIVE); Ketones Urine NEGATIVE (NEGATIVE); Leukocyte Esterase Urine NEGATIVE (NEGATIVE); Nitrite Urine NEGATIVE (NEGATIVE); Protein Urine TRACE mg/dL (NEG/TRACE)
--- NOTE | 2024-12-22 19:21 | ED.MALEGU1 ---
HPI - Male Genitourinary General Chief complaint: Urogenital-Male Stated complaint: UTI Time Seen by Provider: 12/22/24 19:03 Source: patient Mode of arrival: walk-in Limitations: no limitations History of Present Illness HPI Narrative: This 39-year-old male with a history of diabetes and a recent diagnosis of prostatitis presents for evaluation of urinary frequency urgency dysuria and some degree of urinary retention. The patient started having symptoms about 4 weeks ago and was seen by urology. He was diagnosed with prostatitis at that time and given a prescription for Bactrim. He states that the Bactrim worked for a period of time but then stopped working and he was seen here several weeks ago. He was placed on doxycycline at that time. He states that has been working for the past 2 weeks but today started having urinary frequency urgency and dysuria again. He does not have any flank pain. He does not have any abdominal pain. He has not had any fever. There was no culture done on his recent urinalysis for the purpose of directing his antibiotic use. He has not had an ultrasound, prostate biopsy or other lab work performed. Related Data Home Medications ?Medication ?Instructions ?Recorded ?Confirmed doxycycline hyclate 100 mg capsule mg 12/10/24 metformin 1,000 mg tablet mg 12/10/24 tamsulosin 0.4 mg capsule mg PO 12/10/24 Allergies Allergy/AdvReac Type Severity Reaction Status Date / Time No Known Drug Allergies Allergy Verified 12/10/24 00:22 Review of Systems ROS Status of ROS 10 or more systems reviewed and unremarkable except as noted in history and below PFSH PFSH Social History Little interest or pleasure in doing things: not at all Feeling down, depressed, or hopeless: not at all Exam Narrative Exam Narrative: Vital signs and Nursing Notes reviewed: Patient is afebrile with a normal pulse, blood pressure is elevated 168/98, he is not hypoxic with pulse ox of 99% on room air General: Awake, alert, oriented, no acute distress, lying comfortably on the stretcher HEENT: Normocephalic atraumatic, mucous membranes are moist and pink, eyes are clear, normal conjunctiva, vision is grossly intact Neck: Supple, no meningeal signs Chest: Lungs are clear to auscultation with good air entry, there is no wheezing rhonchi or rales appreciated no accessory muscle use, patient is speaking in complete sentences-no chest wall tenderness to palpation CVS: Regular rate and rhythm S1-S2, no murmurs rubs or gallops, pulses are brisk and equal bilaterally ABD: Soft, nondistended, nontender, no rebound guarding or rigidity, bowel sounds are normal, no pulsatile masses appreciated Extremities: Moving all extremities, no lower extremity tenderness or swelling noted, negative Homans' sign, pulses are brisk and equal bilaterally Skin: Normal in appearance without rash,pallor, petechiae or purpura Neuro: No focal deficits Constitutional Vital Signs, click to edit/add: Last Vital Signs Temp 98.2 F 12/22/24 18:59 Pulse 88 12/22/24 18:59 Resp 16 12/22/24 18:59 BP 168/98 H 12/22/24 18:59 Pulse Ox 99 12/22/24 18:59 O2 Del Method Room Air 12/22/24 18:59 Course Vital Signs Vital signs: Vital Signs Temperature 98.2 F 12/22/24 18:59 Pulse Rate 88 12/22/24 18:59 Respiratory Rate 16 12/22/24 18:59 Blood Pressure 168/98 H 12/22/24 18:59 Pulse Oximetry 99 12/22/24 18:59 Oxygen Delivery Method Room Air 12/22/24 18:59 Temperature 98.2 F 12/22/24 18:59 Pulse Rate 88 12/22/24 18:59 Respiratory Rate 16 12/22/24 18:59 Blood Pressure 168/98 H 12/22/24 18:59 Pulse Oximetry 99 12/22/24 18:59 Oxygen Delivery Method Room Air 12/22/24 18:59 MDM - Male Genitourinary MDM Narrative Medical decision making narrative: This 39-year-old male who was recently diagnosed with prostatitis by urology after having urinary symptoms of frequency urgency and dysuria with some urinary retention and was placed on Bactrim but then had recurrence of symptoms and was placed on doxycycline presents for evaluation of recurrent urinary frequency urgency and dysuria. He has not having any fevers or chills. He does not have any flank pain. He denies any penile discharge. His urine most recently was not cultured. He has been taking doxycycline with clinical improvement for the past 2 weeks but then it recurred today. He states he cannot get comfortable due to having to urinate frequently. His physical exam is benign with the exception of a mildly elevated white count. I did routine labs and ordered a PSA which is pending. He has a normal white count and hemoglobin. Electrolytes are normal with the exception of a mildly elevated creatinine at 1.45. Glucose is elevated at 153. I did order a urine culture for the urine today which is otherwise normal. He was medicated with a dose of Cipro and Zofran and Pyridium for his symptoms. He was encouraged to follow-up closely with his urologist as his symptoms may be not related to an infection but spasm or other urologic condition. He is in agreement with this plan. Lab Data Labs: Lab Results 12/22/24 12/22/24 Range/Units 19:15 19:25 WBC 9.7 (4.0-11.0) 10^3/uL RBC 4.80 (4.70-6.10) 10^6/uL Hgb 13.5 L (14.0-18.0) g/dL Hct 39.3 L (42.0-54.0) % MCV 81.9 (80.0-94.0) fL MCH 28.1 (25.9-34.0) pg MCHC 34.4 (29.9-35.2) g/dL RDW 13.5 (11.0-15.0) % Plt Count 198 (150-450) 10^3/uL MPV 10.8 (9.5-13.5) fL Neut % (Auto) 76.2 H (43.0-75.0) % Lymph % (Auto) 12.6 L (20.5-60.0) % Bates % (Auto) 9.6 (1.7-12.0) % Eos % (Auto) 1.0 (0.9-7.0) % Baso % (Auto) 0.2 (0.2-2.0) % Neut # (Auto) 7.4 H (1.4-6.5) 10^3/uL Lymph # (Auto) 1.2 (1.2-3.8) 10^3/uL Bates # (Auto) 0.9 H (0.3-0.8) 10^3/uL Eos # (Auto) 0.1 (0.0-0.7) 10^3/uL Baso # (Auto) 0.0 (0.0-0.1) 10^3/uL Abs Immat Gran (auto) 0.04 H (0.00-0.03) 10^3/uL Imm/Tot Granulo (auto) 0.4 (0.0-0.5) % Sodium 140 (136-145) mmol/L Potassium 4.1 (3.5-5.1) mmol/L Chloride 103 (98-107) mmol/L Carbon Dioxide 29.1 (21.0-32.0) mmol/L Anion Gap 12.0 BUN 18.0 (7.0-18.0) mg/dL Creatinine 1.45 H (0.70-1.30) mg/dL Est GFR ( Amer) >60 (>=60 mL/min/1.73m^2) Est GFR (Non-Af Amer) 55 L (>=60 mL/min/1.73m^2) BUN/Creatinine Ratio 12.4 Glucose 156 H (74-106) mg/dL Calcium 9.1 (8.5-10.1) mg/dL Total Bilirubin 0.7 (0.2-1.0) mg/dL AST 14 L (15-37) U/L ALT 24 (16-63) U/L Alkaline Phosphatase 52 (46-116) U/L Total Protein 7.1 (6.4-8.2) g/dL Albumin 4.0 (3.4-5.0) g/dL Globulin 3.1 g/dL Albumin/Globulin Ratio 1.3 Urine Color Lt. yellow (YELLOW) Urine Clarity Clear (CLEAR) Urine pH 7.0 (5.0-9.0) Ur Specific [place] 1.020 (1.005-1.025) Urine Protein Trace (NEG/TRACE) mg/dL Urine Glucose (UA) Negative (NEGATIVE) mg/dL Urine Ketones Negative (NEGATIVE) mg/dL Urine Occult Blood Trace-i (NEGATIVE) Urine Nitrite Negative (NEGATIVE) Urine Bilirubin Negative (NEGATIVE) Urine Urobilinogen 1.0 (0.2-1.0) EU/dL Ur Leukocyte Esterase Negative (NEGATIVE) Urine RBC 2-5 A (0-2) #/HPF Urine WBC None seen (NONE SEEN) #/HPF Ur Squamous Epith Cells None seen (NONE/RARE) #/LPF Urine Crystals None seen (None Seen) #/HPF Urine Bacteria None seen (NONE SEEN) #/HPF Urine Casts None seen (NONE SEEN) #/LPF Urine Mucus None seen (NONE SEEN) Ur Culture Indicated? Yes-[facility] [place] Discharge Chief Complaint: Urogenital-Male Clinical Impression: Dysuria Patient Disposition: Home, Self-Care Time of Disposition Decision: 20:17 Condition: Good Prescriptions / Home Meds: No Action doxycycline hyclate 100 mg capsule tamsulosin 0.4 mg capsule PO metformin 1,000 mg tablet Print Language: Lao Instructions: Dysuria (ED) Referrals: Georgie Ordoñez MD [Primary Care Provider] - 1 week
[2024-12-22 19:26] LABS: Bacteria Urine NONE SEEN #/HPF (NONE SEEN); Cast Seen? NONE SEEN #/LPF (NONE SEEN); Crystals Seen? None Seen #/HPF (None Seen); Mucus Urine NONE SEEN (NONE SEEN); Squamous Epithelial Cell Urine NONE SEEN #/LPF (NONE/RARE); Urine Culture Indicated YES-FRMC; WBC Urine NONE SEEN #/HPF (NONE SEEN)
[2024-12-22 19:34] LABS: Basophils Percent Auto 0.2 % (0.2-2.0); Eosinophils Absolute Auto 0.1 10^3/uL (0.0-0.7); Hematocrit 39.3 % (42.0-54.0); Hemoglobin 13.5 g/dL (14.0-18.0); Immature Granulocytes Abs Auto 0.04 10^3/uL (0.00-0.03); Immature Granulocytes Pct Auto 0.4 % (0.0-0.5); Lymphocytes Absolute Auto 1.2 10^3/uL (1.2-3.8); Lymphocytes Percent Auto 12.6 % (20.5-60.0); Mean Corpuscular HGB Conc 34.4 g/dL (29.9-35.2); Mean Corpuscular Hemoglobin 28.1 pg (25.9-34.0); Mean Corpuscular Volume 81.9 fL (80.0-94.0); Mean Platelet Volume 10.8 fL (9.5-13.5); Monocytes Absolute Auto 0.9 10^3/uL (0.3-0.8); Monocytes Percent Auto 9.6 % (1.7-12.0); Neutrophils Absolute Auto 7.4 10^3/uL (1.4-6.5); Neutrophils Percent Auto 76.2 % (43.0-75.0); Platelet Count 198 10^3/uL (150-450); Red Cell Distribution Width 13.5 % (11.0-15.0); White Blood Count 9.7 10^3/uL (4.0-11.0)
[2024-12-22] MEDS: CIPROFLOXACIN HCL 500 MG TABLET PO (19:46)
[2024-12-22] MEDS: PHENAZOPYRIDINE 100 MG TABLET PO (19:46)
[2024-12-22] MEDS: ONDANSETRON 4 MG RAPDIS TABLET SL (19:46)
[2024-12-22 19:48] LABS: Alanine Aminotransferase 24 U/L (16-63); Albumin Globulin Ratio 1.3; Alkaline Phosphatase 52 U/L (46-116); Aspartate Amino Transferase 14 U/L (15-37); BUN Creatinine Ratio 12.4; Bilirubin Total 0.7 mg/dL (0.2-1.0); Calcium 9.1 mg/dL (8.5-10.1); Carbon Dioxide 29.1 mmol/L (21.0-32.0); Chloride 103 mmol/L (98-107); Estimated GFR (African America >60 (>=60 mL/min/1.73m^2); Estimated GFR (Non-African Ame 55 (>=60 mL/min/1.73m^2); Globulin 3.1 g/dL; Glucose 156 mg/dL (74-106); Potassium 4.1 mmol/L (3.5-5.1); Sodium 140 mmol/L (136-145); Total Protein 7.1 g/dL (6.4-8.2)
[2024-12-24 08:11] LABS: PSA, Free 0.15 ng/mL; Prostate Specific Ag 0.3 ng/mL (0.0-4.0)
== END 2024-12-22 20:24 | disposition home or self-care (01) ==
PROVIDERS: Emergency Provider Emergency Medicine; PCP Family Medicine
DX: R30.0 Dysuria (principal); E11.9 Type 2 diabetes mellitus without complications; N41.9 Inflammatory disease of prostate, unspecified; Z79.84 Long term (current) use of oral hypoglycemic drugs
CPT/HCPCS: 36415; 80053; 81001; 84153; 84154; 85025; 87086; 99284; Q0162

== ENCOUNTER 2024-12-27 07:18 | Outpatient (OUT) | payer OTHER, SELFPAY ==
--- NOTE | 2024-12-27 07:20 | XR_ITS ---
[address] [address] Patient Name: ESTEPHANIA GALE MRN: [id number] date: 1985 Sex: M Assigned Patient Location: [place] Current Patient Location: [place] Accession/Order Number: [id number] Exam Date: 12/27/2024 09:12 Report Date: 12/27/2024 09:13 At the request of: LYNNETTE DHILLON Procedure: XR abdomen 1V KUB: CLINICAL INFORMATION: Kidney stone. COMPARISON: None. FINDINGS: No suspicious urinary tract calculus. No bowel obstruction or free air. XR/XR abdomen 1V IMPRESSION: NO SUSPICIOUS URINARY TRACT CALCULUS. Impression dictated by: Dominic Tolentino Jr., D.OYojana 12/27/2024 9:13 AM Dictation Location: [place] [address] Electronically authenticated by: [id number] Y Date: 12/27/2024 09:13
--- NOTE | 2024-12-27 07:20 | US_ITS ---
[facility] [place] [id number] Patient Name: ESTEPHANIA GALE MRN: [id number] date: 1985 Sex: M Assigned Patient Location: [place] Current Patient Location: [place] Accession/Order Number: [id number] Exam Date: 12/27/2024 09:06 Report Date: 12/27/2024 09:07 At the request of: LYNNETTE DHILLON Procedure: US renal BI BILATERAL RENAL AND BLADDER ULTRASOUND CLINICAL HISTORY: Prostatitis COMPARISON: None FINDINGS: Estimation of renal size is approximately 11.1 cm on the right and 12.3 cm on the left. No contour deforming mass, shadowing stone or hydronephrosis. 1.8 cm cyst left kidney. The urinary bladder is partially distended with a volume of 102.4 ml. No shadowing stone or focal lesion. No significant postvoid residual. US/US renal BI IMPRESSION: No acute findings. Impression dictated by: Dominic Tolentino Jr., DYojanaOYojana12/27/2024 9:07 AM Dictation Location: [place] [address] Electronically authenticated by: [id number] Y Date: 12/27/2024 09:07
== END 2024-12-27 07:19 | disposition home or self-care (01) ==
LOC: US 07:18
PROVIDERS: PCP Family Medicine; Visit Provider Physician Assistant
DX: N41.9 Inflammatory disease of prostate, unspecified (principal)
CPT/HCPCS: 74018; 76775

== ENCOUNTER 2025-04-14 09:23 | Outpatient (OUT) | payer OTHER, SELFPAY ==
[2025-04-14 09:45] LABS: Hematocrit 39.4 % (42.0-54.0); Hemoglobin 13.8 g/dL (14.0-18.0); Immature Granulocytes Abs Auto 0.05 10^3/uL (0.00-0.03); Immature Granulocytes Pct Auto 0.7 % (0.0-0.5); Lymphocytes Absolute Auto 1.9 10^3/uL (1.2-3.8); Mean Corpuscular HGB Conc 35.0 g/dL (29.9-35.2); Mean Corpuscular Hemoglobin 28.7 pg (25.9-34.0); Mean Corpuscular Volume 81.9 fL (80.0-94.0); Platelet Count 195 10^3/uL (150-450); Red Blood Count 4.81 10^6/uL (4.70-6.10); White Blood Count 7.2 10^3/uL (4.0-11.0)
[2025-04-14 09:57] LABS: Microalbum Creatinine Ratio Ur 11.3 mg/g (0.0-29.9)
[2025-04-14 10:20] LABS: Alanine Aminotransferase 25 U/L (16-63); Albumin Globulin Ratio 1.1; Albumin Level 3.9 g/dL (3.4-5.0); Alkaline Phosphatase 55 U/L (46-116); Anion Gap 11.7; Aspartate Amino Transferase 18 U/L (15-37); Blood Urea Nitrogen 15.0 mg/dL (7.0-18.0); Calcium 8.5 mg/dL (8.5-10.1); Carbon Dioxide 28.5 mmol/L (21.0-32.0); Chloride 102 mmol/L (98-107); Cholesterol 166 mg/dL (<=200); Estimated GFR (African America >60 (>=60 mL/min/1.73m^2); Estimated GFR (Non-African Ame >60 (>=60 mL/min/1.73m^2); Globulin 3.6 g/dL; Glucose 149 mg/dL (74-106); HDL Cholesterol 52 mg/dL (40-60); Potassium 4.2 mmol/L (3.5-5.1); Sodium 138 mmol/L (136-145); Total Protein 7.5 g/dL (6.4-8.2); Triglycerides 131 mg/dL (<=150); VLDL CHOLESTEROL 26.2 mg/dL
== END 2025-04-14 09:24 | disposition home or self-care (01) ==
LOC: LAB 09:23
PROVIDERS: PCP Family Medicine; Visit Provider Family Medicine
DX: Z00.00 Encounter for general adult medical examination without abnormal findings (principal); E11.65 Type 2 diabetes mellitus with hyperglycemia
CPT/HCPCS: 36415; 80053; 80061; 82043; 82570; 83036; 85025